=== PATIENT | male | born 1965 | race Caucasian/White ===

== ENCOUNTER 2016-06-24 09:40 | Emergency (ER) | payer SELFPAY ==
[2016-06-24 10:28] VITALS: BP 153/94; PULSE 129; RESP 20; TEMP 98.1
[2016-06-24] MEDS ORDERED: LORazepam 2 MG/ML SYRINGE IM STA (11:20)
--- NOTE | 2016-06-24 11:25 | ED ---
General Adult HPI - General Chief complaint: Alcohol Stated complaint: ALCOHOL AND DRUG WITHDRAWALS Time Seen by Provider: 06/24/16 11:16 Source: patient, RN notes reviewed Mode of arrival: ambulatory Limitations: no limitations - History of Present Illness Initial comments: Patient is a pleasant 50-year-old male presenting to the emergency department concerning alcohol and drug withdrawal. Patient was drinking alcohol heavily as well as taking [place] was. Patient last used 4 days ago. Patient feels cold in his chest. Patient feels shaky. Patient did not sleep at all last night. Patient does complain of moderate right-sided headache. No confusion. No weakness. Patient states nausea has mostly past and is very mild at this time. - Related Data Previous Rx's Medication Instructions Recorded LORazepam [Ativan] 1 mg PO TID PRN #8 tab 06/24/16 Allergies Allergy/AdvReac Type Severity Reaction Status Date / Time No Known Allergies Allergy Verified 06/24/16 10:28 Review of Systems ROS Statement: Those systems with pertinent positive or pertinent negative responses have been documented in the HPI. ROS Other: All systems not noted in ROS Statement are negative. Constitutional: Denies: fever Eyes: Denies: eye pain ENT: Denies: ear pain Respiratory: Denies: cough, dyspnea Cardiovascular: Denies: chest pain Endocrine: Reports: fatigue Gastrointestinal: Reports: nausea. Denies: abdominal pain Genitourinary: Denies: dysuria Musculoskeletal: Denies: back pain Skin: Denies: rash Neurological: Reports: headache. Denies: weakness, numbness, paresthesias, confusion Psychiatric: Reports: anxiety Past Medical History Past Medical History: No Reported History Additional Past Medical History / Comment(s): back pain History of Any Multi-Drug Resistant Organisms: None Reported Past Surgical History: No Surgical Hx Reported Additional Past Surgical History / Comment(s): METAL PLATE IN RIGHT EYE SOCKET Past Psychological History: No Psychological Hx Reported Smoking Status: Current every day smoker Past Alcohol Use History: Occasional Past Drug Use History: None Reported General Exam Limitations: no limitations General appearance: alert, in no apparent distress, other (Patient does have mild resting tremor) Head exam: Present: atraumatic Eye exam: Present: normal appearance, PERRL, EOMI ENT exam: Present: normal oropharynx Neck exam: Present: normal inspection Respiratory exam: Present: normal lung sounds bilaterally Cardiovascular Exam: Present: tachycardia GI/Abdominal exam: Present: soft. Absent: tenderness Extremities exam: Present: normal inspection Neurological exam: Present: alert, oriented X3, CN II-XII intact. Absent: motor sensory deficit Expanded Speech: Present: fluid speech Cranial nerves: EOM's Intact: Normal Motor strength exam: RUE: 5, LUE: 5, RLE: 5, LLE: 5 Eye Response: (4) open spontaneously Motor Response: (6) obeys commands Verbal Response: (5) oriented Psychiatric exam: Present: normal affect, normal mood Skin exam: Absent: rash Course Vital Signs 06/24/16 10:25 Temperature 98.1 F Pulse Rate 129 H Respiratory 20 Rate Blood Pressure 153/94 O2 Sat by Pulse 98 Oximetry - Reevaluation(s) Reevaluation #1: 06/24/16 11:22 Patient offered computed tomography scan of the brain however refuses. Disposition Clinical Impression: Alcohol withdrawal Disposition: HOME SELF-CARE Condition: Stable Instructions: Acute Headache (ED), Alcohol Withdrawal (ED), Polysubstance Abuse (ED) Additional Instructions: Continue to not use alcohol or pain pills. Consider follow-up with AA or [place] or other, list was provided. Return for weakness, fever, increased headache, seizure, worsening symptoms or other concerns. Prescriptions: LORazepam [Ativan] 1 mg PO TID PRN #8 tab PRN Reason: Anxiety Referrals: Oanh Koo DO [Primary Care Provider] - 1-2 days
== END 2016-06-24 11:46 | disposition home or self-care (01) ==
LOC: EC 09:40
DX: F10.239 Alcohol dependence with withdrawal, unspecified (principal); R51 Headache; F17.200 Nicotine dependence, unspecified, uncomplicated; Z79.891 Long term (current) use of opiate analgesic
CPT/HCPCS: 96372; 99284; J2060

== ENCOUNTER → 2017-05-17 | Outpatient (CLI) | payer BC ==
--- NOTE | 2017-05-17 12:41 | XR ---
EXAMINATION TYPE: XR chest 2V DATE OF EXAM: 05/17/2017 COMPARISON: NONE HISTORY: History of COPD with back pain. TECHNIQUE: Frontal and lateral views of the chest are obtained. FINDINGS: There is no focal air space opacity, pleural effusion, or pneumothorax seen. The cardiac silhouette size is within normal limits. The osseous structures are intact. IMPRESSION: No acute cardiopulmonary process.
--- NOTE | 2017-05-17 13:03 | CT ---
EXAMINATION TYPE: CT lumbar spine wo con DATE OF EXAM: 05/17/2017 COMPARISON: NONE HISTORY: Patient complains of low back pain. CT DLP: 373.3 mGycm CONTRAST: None TECHNIQUE: CT of the lumbar spine is performed on a spiral scan at 3 mm thick sections. Reconstructed images are performed in the coronal and sagittal planes. FINDINGS: T11-T12: No focal disc herniation or significant disc bulge is evident. No spinal canal stenosis or neural foraminal stenosis is present. T12-L1: No focal disc herniation or significant disc bulge is evident. No spinal canal stenosis or neural foraminal stenosis is present. L1-L2: No focal disc herniation or significant disc bulge is evident. No spinal canal stenosis or n eural foraminal stenosis is present L2-L3: No focal disc herniation or significant disc bulge is evident. No spinal canal stenosis or n eural foraminal stenosis is present L3-L4: No focal disc herniation or significant disc bulge is evident. No spinal canal stenosis or n eural foraminal stenosis is present L4-L5: Broad-based disc bulge is present. This may be slightly more focal centrally. This has moderat e anterior thecal sac compression. Ligamentum flavum laxity is present. These are contributing to spi nal canal stenosis through this level. Moderate left and mild to moderate right foraminal narrowing i s present due to the disc bulge. Facet degenerative changes present. L5-S1: There is narrowing of the disc height. Some minimal residual disc bulge on the right may has s ome posterior S1 nerve root displacement. Minimal left foraminal narrowing is present. There is mild right foraminal narrowing due to endplate spurring. Vertebral alignment appears normal. IMPRESSION: 1. Broad-based disc bulge with more central focal bulge L4-5 in conjunction with ligamentum flavum la xity is contributing to spinal canal stenosis at the L4-5 level. 2. Mild endplate changes L5-S1 with disc bulging has mild right posterior S1 nerve root displacement and foraminal narrowing discussed above.
== END | disposition home or self-care (01) ==
LOC: RADXRMAIN 11:39
PROVIDERS: ATTEND Family Medicine
DX: M48.061 Spinal stenosis, lumbar region without neurogenic claudication (principal); M99.73 Connective tissue and disc stenosis of intervertebral foramina of lumbar region; M51.27 Other intervertebral disc displacement, lumbosacral region; J44.9 Chronic obstructive pulmonary disease, unspecified
CPT/HCPCS: 71020; 72131

== ENCOUNTER 2021-12-13 08:52 | Emergency (ER) | payer BC, OTHER ==
[2021-12-13 08:59] VITALS: BP 152/95; PULSE 90; RESP 18; TEMP 97.7
--- NOTE | 2021-12-13 09:21 | XR ---
EXAMINATION TYPE: XR chest 2V DATE OF EXAM: 12/13/2021 COMPARISON: 05/17/2017 HISTORY: Shortness of breath TECHNIQUE: Frontal and lateral views of the chest are obtained. FINDINGS: Scattered senescent parenchymal changes noted. Hyperinflation compatible with COPD. No evidence for infiltrate. No evidence for atelectasis. Heart size is stable. Mediastinal structures are stable and grossly unremarkable. No evidence for hilar prominence. Degenerative changes dorsal spine. IMPRESSION: 1. No evidence for acute pulmonary disease.
== END 2021-12-13 09:22 | disposition left against medical advice (07) ==
LOC: EC 08:52
DX: Z53.21 Procedure and treatment not carried out due to patient leaving prior to being seen by health care provider (principal)
CPT/HCPCS: 71046; 87635; 93005; 99499

== ENCOUNTER 2022-08-26 15:30 | Emergency (ER) | payer MEDICARE ==
[2022-08-26 15:35] VITALS: PULSE 80; TEMP 98.2
--- NOTE | 2022-08-26 15:54 | ED ---
General Adult HPI - General Chief complaint: ENT Stated complaint: Sinus infection Time Seen by Provider: 08/26/22 15:52 Source: patient Mode of arrival: ambulatory Limitations: no limitations - History of Present Illness Initial comments: Patient presents to the ED complaining of having pressure along his right maxillary sinus, right nasal congestion and foul-tasting postnasal drip for the past 3 weeks or so. Patient states that he has noticed greenish colored mucus when blowing his nose. Patient is concerned that he has a sinus infection. Patient denies fever or chills, otalgia, neck pain or stiffness, sore throat, cough, dyspnea, chest pain, dizziness, abdominal pain, nausea/vomiting/diarrhea, dysuria or urinary symptoms, or any other symptoms or complaints. - Related Data Previous Rx's Medication Instructions Recorded LORazepam [Ativan] 1 mg PO TID PRN #8 tab 06/24/16 Doxycycline Hyclate 100 mg PO BID 7 Days #14 tab 08/26/22 Pseudoephedrine 12Hr [Sudafed 12 120 mg PO Q12HR PRN #10 tab 08/26/22 Hour] Allergies Allergy/AdvReac Type Severity Reaction Status Date / Time No Known Allergies Allergy Verified 08/26/22 15:35 Review of Systems ROS Statement: Those systems with pertinent positive or pertinent negative responses have been documented in the HPI. ROS Other: All systems not noted in ROS Statement are negative. Past Medical History Past Medical History: COPD Additional Past Medical History / Comment(s): back pain History of Any Multi-Drug Resistant Organisms: None Reported Past Surgical History: No Surgical Hx Reported Additional Past Surgical History / Comment(s): METAL PLATE IN RIGHT EYE SOCKET Past Psychological History: No Psychological Hx Reported Smoking Status: Current every day smoker Past Alcohol Use History: Heavy Past Drug Use History: Prescription Drug Abuse General Exam Limitations: no limitations General appearance: alert, in no apparent distress Head exam: Present: atraumatic, normocephalic Eye exam: Present: normal appearance, PERRL, EOMI ENT exam: Present: normal oropharynx, mucous membranes moist, TM's normal bilaterally, other (Mild tenderness is noted over right maxillary sinus region) Neck exam: Absent: tenderness, meningismus Respiratory exam: Present: normal lung sounds bilaterally. Absent: respiratory distress, wheezes, rales, rhonchi, stridor Cardiovascular Exam: Present: regular rate, normal rhythm, normal heart sounds, other (Normal radial pulses bilaterally) GI/Abdominal exam: Present: soft. Absent: distended, tenderness, guarding Extremities exam: Absent: pedal edema Neurological exam: Present: alert, oriented X3, CN II-XII intact. Absent: motor sensory deficit Psychiatric exam: Present: normal affect, normal mood Skin exam: Present: warm, dry, intact, normal color Course Vital Signs 08/26/22 15:32 Temperature 98.2 F Pulse Rate 80 Respiratory 24 Rate Blood Pressure 140/92 O2 Sat by Pulse 99 Oximetry Medical Decision Making - Medical Decision Making Was pt. sent in by a medical professional or institution (, [facility], [facility], urgent care, hospital, or jail...) When possible be specific @ -No Did you speak to anyone other than the patient for history (EMS, parent, family, police, friend...)? What history was obtained from this source @ -No Did you review nursing and triage notes (agree or disagree)? Why? @ -I reviewed and agree with nursing and triage notes Were old charts reviewed (outside hosp., previous admission, EMS record, old EKG, old radiological studies, urgent care reports/EKG's, jail records)? Report findings @ -No old charts were reviewed Differential Diagnosis (chest pain, altered mental status, abdominal pain women, abdominal pain men, vaginal bleeding, weakness, fever, dyspnea, syncope, head ache, dizziness, GI bleed, back pain, seizure, CVA, palpatations, mental health, musculoskeletal)? @ -Upper respiratory infection, viral illness, sinusitis EKG interpreted by me (3pts min.). @ -None done X-rays interpreted by me (1pt min.). @ -None done CT interpreted by me (1pt min.). @ -None done U/S interpreted by me (1pt. min.). @ -None done What testing was considered but not performed or refused? (CT, X-rays, U/S, labs)? Why? @ -None What meds were considered but not given or refused? Why? @ -None Did you discuss the management of the patient with other professionals (professionals i.e. [facility] Bermudez, [facility], lab, RT, psych nurse, social services director, varnish finisher, teacher, chief green officer, telehealth case manager)? Give summary @ -No Was smoking cessation discussed for >3mins.? @ -No Was critical care preformed (if so, how long)? @ -No Were there social determinants of health that impacted care today? How? (Homelessness, low income, unemployed, alcoholism, drug addiction, transportation, low edu. Level, literacy, decrease access to med. care, senior care, rehab)? @ -No Was there de-escalation of care discussed even if they declined (Discuss DNR or withdrawal of care, Hospice)? DNR status @ -No What co-morbidities impacted this encounter? (DM, HTN, Smoking, COPD, CAD, Cancer, CVA, ARF, Chemo, Hep., AIDS, mental health diagnosis, sleep apnea, morbid obesity)? @ -None Was patient admitted / discharged? Hospital course, mention meds given and route, prescriptions, significant lab abnormalities, going to OR and other p ertinent info. @ -Patient was counseled about sinus infection/sinusitis, and he was clearly explained return and follow-up instructions. Patient was instructed to follow up closely with his primary care provider. Will discharge patient home at this time with prescriptions for a decongestant, as well as a course of antibiotics. Patient feels comfortable with this plan. Undiagnosed new problem with uncertain prognosis? @ -No Drug Therapy requiring intensive monitoring for toxicity (Heparin, Nitro, Insulin, Cardizem)? @ -No Were any procedures done? @ -No Diagnosis/symptom? @ -Acute sinusitis Acute, or Chronic, or Acute on Chronic? @ -Acute Uncomplicated (without systemic symptoms) or Complicated (systemic symptoms)? @ -Uncomplicated Side effects of treatment? @ -No Exacerbation, Progression, or Severe Exacerbation? @ -No Poses a threat to life or bodily function? How? (Chest pain, [place], [place], pneumonia, PE, COPD, DKA, ARF, appy, cholecystitis, CVA, Diverticulitis, Homicidal, Suicidal, threat to staff... and all critical care pts) @ -No Disposition Clinical Impression: Acute sinusitis Disposition: HOME SELF-CARE Condition: Stable Instructions (If sedation given, give patient instructions): Sinusitis (ED) Additional Instructions: Return to the ER immediately should you develop new or worsening pain, a high fever, feeling dizzy or faint, shortness of breath, chest pain, or new or worsening symptoms. Follow up closely with your primary care provider. Prescriptions: Doxycycline Hyclate 100 mg PO BID 7 Days #14 tab Pseudoephedrine 12Hr [Sudafed 12 Hour] 120 mg PO Q12HR PRN #10 tab PRN Reason: Congestion Is patient prescribed a controlled substance at d/c from ED?: No Referrals: None,Stated [Primary Care Provider] - 1-2 days Edward Bowden DO [STAFF PHYSICIAN] - 1-2 days Time of Disposition: 16:17
[2022-08-26 16:24] VITALS: BP 132/78; RESP 18
== END 2022-08-26 16:24 | disposition home or self-care (01) ==
LOC: EC 15:30
DX: J01.90 Acute sinusitis, unspecified (principal); J44.9 Chronic obstructive pulmonary disease, unspecified; F17.200 Nicotine dependence, unspecified, uncomplicated
CPT/HCPCS: 99283

== ENCOUNTER 2022-11-06 21:45 | Emergency (ER) | payer MEDICARE ==
[2022-11-06 21:52] VITALS: TEMP 97.9
[2022-11-06 22:33] LABS: INR 0.9 (<1.2); Partial Thromboplastin Time 24.6 sec (22.0-30.0); Prothrombin Time 9.5 sec (9.0-12.0)
--- NOTE | 2022-11-06 22:38 | XR ---
EXAMINATION TYPE: XR chest 2V DATE OF EXAM: 11/06/2022 10:13 PM COMPARISON: Chest radiographs from 12/13/2021 TECHNIQUE: XR chest 2V Frontal and lateral views of the chest. CLINICAL INDICATION:Male, 57 years old with history of Chest Pain; FINDINGS: Lungs/Pleura: There is flattening of the diaphragm with increased lucency of the lungs. No evidence o f pneumothorax, pleural effusion or focal consolidation. Pulmonary vascularity: Unremarkable. Heart/mediastinum: Cardiomediastinal silhouette is unremarkable. Musculoskeletal: No acute osseous pathology. Right distal clavicle fracture versus os acromiale. IMPRESSION: 1. No acute cardiopulmonary disease process. 2. COPD changes. 3. Right distal clavicle fracture versus os acromiale. Correlate with point tenderness. New from prio r radiograph 12/13/2021.
[2022-11-06 22:50] LABS: ALT 52 U/L (4-49); AST 61 U/L (17-59); African American GFR (CKD) >90 (>60 ml/min/1.73 sqM); Albumin 4.2 g/dL (3.5-5.0); Alkaline Phosphatase 92 U/L (38-126); Anion Gap 13 mmol/L; Blood Urea Nitrogen 8 mg/dL (9-20); Calcium 9.1 mg/dL (8.4-10.2); Carbon Dioxide 23 mmol/L (22-30); Chloride 102 mmol/L (98-107); Glucose 100 mg/dL (74-99); Magnesium 2.1 mg/dL (1.6-2.3); Non-African American GFR(CKD) >90 (>60 ml/min/1.73 sqM); Potassium 3.9 mmol/L (3.5-5.1); Sodium 138 mmol/L (137-145); Total Bilirubin 0.3 mg/dL (0.2-1.3)
[2022-11-06] MEDS ORDERED: KETOROLAC 15 MG/ML 1 ML VIAL IVP STA (23:01)
[2022-11-06] MEDS ORDERED: LIDOCAINE 5% PATCH TOPICAL STA (23:01)
[2022-11-06] MEDS ORDERED: IPRATROPIUM-ALBUTEROL 3 ML NEB INHALATION STA (23:02)
[2022-11-06] MEDS ORDERED: methylPREDNISolone SOD SUCCI 125 MG/2 ML VIAL IV STA (23:02)
[2022-11-06 23:04] LABS: Basophils % (A) 0 %; Eosinophils # (A) 0.3 k/uL (0-0.7); Eosinophils % (A) 3 %; HCT 39.3 % (39.0-53.0); HGB 12.9 gm/dL (13.0-17.5); Lymphocytes % (A) 21 %; MCH 34.5 pg (25.0-35.0); MCHC 32.9 g/dL (31.0-37.0); MCV 104.8 fL (80.0-100.0); Macrocytosis Slight; Mean Platelet Volume 7.3; Monocytes # (A) 0.7 k/uL (0-1.0); Monocytes % (A) 8 %; Neutrophils # (A) 6.3 k/uL (1.3-7.7); Neutrophils % (A) 65 %; Platelet Count 220 k/uL (150-450); RBC 3.75 m/uL (4.30-5.90); RDW 13.3 % (11.5-15.5); WBC 9.7 k/uL (3.8-10.6)
[2022-11-06] MEDS ORDERED: AZITHROMYCIN 500 MG TAB PO STA (23:16)
--- NOTE | 2022-11-06 23:16 | ED ---
General Adult HPI - General Chief complaint: Chest Pain Stated complaint: CHEST PAIN Time Seen by Provider: 11/06/22 22:50 Source: patient, RN notes reviewed, old records reviewed Mode of arrival: ambulatory Limitations: no limitations - History of Present Illness Initial comments: Patient is a 57-year-old male who presents emergency Department complaining of chest pain. Patient's chest pain is more of left-sided rib pain located in the posterior axillary line. He has been having increased coughing, green mucous production over the last few days. No septal chest pain started with coughing episodes. Denies any anterior wall chest pain. No heart history. Does have a history of COPD and still smokes. Denies abdominal pain, nausea, vomiting. Denies congestion. Presents for further evaluation at this time. No known sick contacts. - Related Data Previous Rx's Medication Instructions Recorded LORazepam [Ativan] 1 mg PO TID PRN #8 tab 06/24/16 Doxycycline Hyclate 100 mg PO BID 7 Days #14 tab 08/26/22 Pseudoephedrine 12Hr [Sudafed 12 120 mg PO Q12HR PRN #10 tab 08/26/22 Hour] Albuterol Inhaler [Ventolin Hfa 1 puff INHALATION QID #8 gm 11/06/22 Inhaler] Azithromycin [Zithromax] 250 mg PO DAILY 4 Days #4 tab 11/06/22 Lidocaine 5% Patch [Lidoderm 5% 14 patch TOPICAL DAILY PRN #14 11/06/22 Patch] patch predniSONE [Deltasone] 40 mg PO DAILY 5 Days #10 tab 11/06/22 Allergies Allergy/AdvReac Type Severity Reaction Status Date / Time No Known Allergies Allergy Verified 08/26/22 15:35 Review of Systems ROS Statement: Those systems with pertinent positive or pertinent negative responses have been documented in the HPI. Review of Systems: CONST: Denies fever EYES: Denies blurry vision ENT: Denies nasal congestion C/V: Denies Chest pain RESP: Endorses cough GI: Denies abdominal pain : Denies dysuria SKIN: Denies rash. MSK: Denies joint pain. NEURO: Denies headache ROS Other: All systems not noted in ROS Statement are negative. Past Medical History Past Medical History: COPD Additional Past Medical History / Comment(s): back pain History of Any Multi-Drug Resistant Organisms: None Reported Past Surgical History: No Surgical Hx Reported Additional Past Surgical History / Comment(s): METAL PLATE IN RIGHT EYE SOCKET Past Psychological History: No Psychological Hx Reported Smoking Status: Current every day smoker Past Alcohol Use History: Heavy Past Drug Use History: Prescription Drug Abuse General Exam - General Exam Comments Initial Comments: General: Appears in no acute distress. HEAD: Normal with no signs of head trauma. EYES: PERRLA, EOMI, conjunctiva normal, no discharge. ENT: Hearing grossly intact, normal oropharynx. RESPIRATORY: Bilateral end expiratory wheezing. No rhonchi. No hypoxia. Acti ve coughing. C/V: Regular rate and rhythm. S1 and S2 auscultated, no edema, peripheral pulses 2+ and intact throughout ABD: Abd is soft, nontender, nondistended EXT: Patient does have posterior axillary line on the left point tenderness over the inferior ribs spaces. Likely muscle strain from coughing. No obvious deformity palpated. SKIN: No rashes or lesions observed on exposed skin. NEURO: Alert and oriented 4. 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 sent in by a medical professional or institution (Dr. PA, EMBEDDED LINUX ENGINEER, urgent care, hospital, or fpc...) When possible be specific @ -No Did you speak to anyone other than the patient for history (EMS, parent, family, police, friend...)? What history was obtained from this source @ -No Did you review nursing and triage notes (agree or disagree)? Why? @ -I reviewed and agree with nursing and triage notes Were old charts reviewed (outside hosp., previous admission, EMS record, old EKG, old radiological studies, urgent care reports/EKG's, fpc records)? Report findings @ -No old charts were reviewed Differential Diagnosis (chest pain, altered mental status, abdominal pain women, abdominal pain men, vaginal bleeding, weakness, fever, dyspnea, syncope, headache, dizziness, GI bleed, back pain, seizure, CVA, palpatations, mental health, musculoskeletal)? @ -Differential Dyspnea: Coronary syndrome, arrhythmia, tamponade, asthma, COPD, pulmonary embolism, pneumonia, pneumothorax, pulmonary effusion, anaphylaxis, diabetic ketoacidosis, flailed chest, pulmonary contusion, diaphragmatic rupture, anemia, neuromuscular, this is not meant to be an all-inclusive list. EKG interpreted by me (3pts min.). @ -As above X-rays interpreted by me (1pt min.). @ -Chest x-ray reveals no obvious acute cardiopulmonary process. COPD is present. Radiology does notice right distal clavicle fracture versus abnormality and recommended palpation, which was done the patient has no point tenderness. Has chronic right shoulder issues. CT interpreted by me (1pt min.). @ -None done U/S interpreted by me (1pt. min.). @ -None done What testing was considered but not performed or refused? (CT, X-rays, U/S, labs)? Why? @ -None What meds were considered but not given or refused? Why? @ -None Did you discuss the management of the patient with other professionals (professionals i.e. , PA, EMBEDDED LINUX ENGINEER, lab, RT, psych nurse, social media specialist, education and outreach coordinator, teacher, radiological defense officer, case monitor)? Give summary @ -No Was smoking cessation discussed for >3mins.? @ -Yes Was critical care preformed (if so, how long)? @ -No Were there social determinants of health that impacted care today? How? (Homelessness, low income, unemployed, alcoholism, drug addiction, transportation, low edu. Level, literacy, decrease access to med. care, snf, rehab)? @ -No Was there de-escalation of care discussed even if they declined (Discuss DNR or withdrawal of care, Hospice)? DNR status @ -No What co-morbidities impacted this encounter? (DM, HTN, Smoking, COPD, CAD, Cancer, CVA, ARF, Chemo, Hep., AIDS, mental health diagnosis, sleep apnea, morbid obesity)? @ -COPD Was patient admitted / discharged? Hospital course, mention meds given and route, prescriptions, significant lab abnormalities, going to OR and other pertinent info. @ -Based on the patient's presentation and physical exam, I do believe he has a chest wall strain secondary to coughing from an acute COPD exacerbation and bronchitis. Patient's workup was started in triage. Vital signs are within acceptable limits. Initial tachycardia has resolved. Patient was sent directly treated with IV steroids, breathing treatment, lidocaine patch, IV Toradol. He was in agreement with this plan. EKG shows no signs of acute ischemia. Chest x-ray shows no acute infectious process. There is an abnormality seen of the right clavicle which is likely chronic as the patient is no point tenderness in his chronic right shoulder issues. I did discuss the findings with him and he expressed understanding. Patient's labs are remarkable for an undetectable troponin. Remainder of labs are within acceptable limits. On reevaluation, I did discuss the findings with the patient. He'll be discharged home at this time with antibiotics, steroids, inhaler. Strict return precautions discussed. He will also be given a prescription for lidocaine patches. I will provide the patient with a prescription for prednisone, albuterol inhaler, azithromycin, lidocaine patch. I instructed the patient to follow up with their PCP in the next 1-3 days. I explained that the patient should return to the emergency department if they experience any worsening symptoms. Strict return precautions were discussed with the patient. The patient expressed understanding of these instructions. I answered all questions that the patient had. The patient was discharged home in good condition with their prescriptions and follow up information. Undiagnosed new problem with uncertain prognosis? @ -No Drug Therapy requiring intensive monitoring for toxicity (Heparin, Nitro, Insulin, Cardizem)? @ -No Were any procedures done? @ -No Diagnosis/symptom? @ -COPD, bronchitis Acute, or Chronic, or Acute on Chronic? @ -Acute on chronic Uncomplicated (without systemic symptoms) or Complicated (systemic symptoms)? @ -Complicated Side effects of treatment? @ -No Exacerbation, Progression, or Severe Exacerbation? @ -Exacerbation Poses a threat to life or bodily function? How? (Chest pain, [place], AR, pneumonia, PE, COPD, DKA, ARF, appy, cholecystitis, CVA, Diverticulitis, Homicidal, Suicidal, threat to staff... and all critical care pts) @ -No Diagnosis/symptom? @ -Chest wall strain Acute, or Chronic, or Acute on Chronic? @ -Acute Uncomplicated (without systemic symptoms) or Complicated (systemic symptoms)? @ -Uncomplicated Side effects of treatment? @ -none Exacerbation, Progression, or Severe Exacerbation] @ -no Poses a threat to life or bodily function? @ -no - Lab Data Result diagrams: 11/06/22 21:54 11/06/22 21:54 Lab Results 11/06/22 11/06/22 11/06/22 Range/Units 21:54 21:54 21:54 WBC 9.7 (3.8-10.6) k/uL RBC 3.75 L (4.30-5.90) m/uL Hgb 12.9 L (13.0-17.5) gm/dL Hct 39.3 (39.0-53.0) % MCV 104.8 H (80.0-100.0) fL MCH 34.5 (25.0-35.0) pg MCHC 32.9 (31.0-37.0) g/dL RDW 13.3 (11.5-15.5) % Plt Count 220 (150-450) k/uL MPV 7.3 Neutrophils % 65 % Lymphocytes % 21 % Monocytes % 8 % Eosinophils % 3 % Basophils % 0 % Neutrophils # 6.3 (1.3-7.7) k/uL Lymphocytes # 2.0 (1.0-4.8) k/uL Monocytes # 0.7 (0-1.0) k/uL Eosinophils # 0.3 (0-0.7) k/uL Basophils # 0.0 (0-0.2) k/uL Macrocytosis Slight PT 9.5 (9.0-12.0) sec INR 0.9 (<1.2) APTT 24.6 (22.0-30.0) sec Sodium 138 (137-145) mmol/L Potassium 3.9 (3.5-5.1) mmol/L Chloride 102 (98-107) mmol/L Carbon Dioxide 23 (22-30) mmol/L Anion Gap 13 mmol/L BUN 8 L (9-20) mg/dL Creatinine 0.57 L (0.66-1.25) mg/dL Est GFR (CKD-EPI)AfAm >90 (>60 ml/min/1.73 sqM) Est GFR (CKD-EPI)NonAf >90 (>60 ml/min/1.73 sqM) Glucose 100 H (74-99) mg/dL Calcium 9.1 (8.4-10.2) mg/dL Magnesium 2.1 (1.6-2.3) mg/dL Total Bilirubin 0.3 (0.2-1.3) mg/dL AST 61 H (17-59) U/L ALT 52 H (4-49) U/L Alkaline Phosphatase 92 (38-126) U/L Troponin I (0.000-0.034) ng/mL Total Protein 7.0 (6.3-8.2) g/dL Albumin 4.2 (3.5-5.0) g/dL 11/06/22 Range/Units 21:54 WBC (3.8-10.6) k/uL RBC (4.30-5.90) m/uL Hgb (13.0-17.5) gm/dL Hct (39.0-53.0) % MCV (80.0-100.0) fL MCH (25.0-35.0) pg MCHC (31.0-37.0) g/dL RDW (11.5-15.5) % Plt Count (150-450) k/uL MPV Neutrophils % % Lymphocytes % % Monocytes % % Eosinophils % % Basophils % % Neutrophils # (1.3-7.7) k/uL Lymphocytes # (1.0-4.8) k/uL Monocytes # (0-1.0) k/uL Eosinophils # (0-0.7) k/uL Basophils # (0-0.2) k/uL Macrocytosis PT (9.0-12.0) sec INR (<1.2) APTT (22.0-30.0) sec Sodium (137-145) mmol/L Potassium (3.5-5.1) mmol/L Chloride (98-107) mmol/L Carbon Dioxide (22-30) mmol/L Anion Gap mmol/L BUN (9-20) mg/dL Creatinine (0.66-1.25) mg/dL Est GFR (CKD-EPI)AfAm (>60 ml/min/1.73 sqM) Est GFR (CKD-EPI)NonAf (>60 ml/min/1.73 sqM) Glucose (74-99) mg/dL Calcium (8.4-10.2) mg/dL Magnesium (1.6-2.3) mg/dL Total Bilirubin (0.2-1.3) mg/dL AST (17-59) U/L ALT (4-49) U/L Alkaline Phosphatase (38-126) U/L Troponin I <0.012 (0.000-0.034) ng/mL Total Protein (6.3-8.2) g/dL Albumin (3.5-5.0) g/dL - EKG Data -: EKG Interpreted by Me EKG Comments: 12-lead Electrocardiogram Interpretation Note EKG was reviewed and interpreted by myself. 12-lead ECG performed at 2154 is interpreted by me as revealing normal sinus rhythm at a rate of 93 beats per minute. Left axis deviation. MD interval is 161 ms, QRS duration is 100 ms, QTc is 384 ms.. There were no ST or T wave abnormalities to suggest myocardial ischemia or injury. R wave progression across the precordium was satisfactory. By my interpretation this EKG is non-diagnostic for acute ischemia. Disposition Clinical Impression: COPD exacerbation, Bronchitis, Muscle strain Disposition: HOME SELF-CARE Condition: Good Instructions (If sedation given, give patient instructions): How to Use an Incentive Spirometer (ED), Acute Bronchitis (ED), COPD (Chronic Obstructive Pulmonary Disease) (ED) Prescriptions: predniSONE [Deltasone] 40 mg PO DAILY 5 Days #10 tab Lidocaine 5% Patch [Lidoderm 5% Patch] 14 patch TOPICAL DAILY PRN #14 patch PRN Reason: Pain Albuterol Inhaler [Ventolin Hfa Inhaler] 1 puff INHALATION QID #8 gm Azithromycin [Zithromax] 250 mg PO DAILY 4 Days #4 tab Is patient prescribed a controlled substance at d/c from ED?: No Referrals: None,Stated [Primary Care Provider] - 1-2 days Sofiya Christine MD [STAFF PHYSICIAN] - 1-2 days Time of Disposition: 23:15
[2022-11-07 00:08] VITALS: BP 122/71; PULSE 92; RESP 20
== END 2022-11-07 00:07 | disposition home or self-care (01) ==
LOC: EC 21:45
DX: S29.011A Strain of muscle and tendon of front wall of thorax, initial encounter (principal); J44.1 Chronic obstructive pulmonary disease with (acute) exacerbation; J20.9 Acute bronchitis, unspecified; F17.200 Nicotine dependence, unspecified, uncomplicated
CPT/HCPCS: 36415; 94640; 93005; 80053; 83735; 84484; 85025; 85610; 85730; 71046; 99285; 96374; 96375; J2930; J1885

== ENCOUNTER 2023-04-11 21:58 | Emergency (ER) | payer MEDICARE ==
--- NOTE | 2023-04-11 22:16 | ED ---
General Adult HPI - General Stated complaint: Difficulty Breathing, Dehydration Time Seen by Provider: 04/11/23 22:14 Source: patient, RN notes reviewed - History of Present Illness Initial comments: 57 year old male presents to the emergency department for chief complaint of difficulty catching his breath. This started this afternoon. He admits to history of COPD. He does report increase in alcohol consumption for the past 2 weeks. He states that he has been drinking 4 beers at 8% alcohol daily. Last drink was around 2pm today. - Related Data Previous Rx's Medication Instructions Recorded LORazepam [Ativan] 1 mg PO TID PRN #8 tab 06/24/16 Doxycycline Hyclate 100 mg PO BID 7 Days #14 tab 08/26/22 Pseudoephedrine 12Hr [Sudafed 12 120 mg PO Q12HR PRN #10 tab 08/26/22 Hour] Albuterol Inhaler [Ventolin Hfa 1 puff INHALATION QID #8 gm 11/06/22 Inhaler] Azithromycin [Zithromax] 250 mg PO DAILY 4 Days #4 tab 11/06/22 Lidocaine 5% Patch [Lidoderm 5% 14 patch TOPICAL DAILY PRN #14 11/06/22 Patch] patch predniSONE [Deltasone] 40 mg PO DAILY 5 Days #10 tab 11/06/22 Allergies Allergy/AdvReac Type Severity Reaction Status Date / Time No Known Allergies Allergy Verified 08/26/22 15:35 Review of Systems ROS Statement: Those systems with pertinent positive or pertinent negative responses have been documented in the HPI. ROS Other: All systems not noted in ROS Statement are negative. Past Medical History Past Medical History: COPD Additional Past Medical History / Comment(s): back pain History of Any Multi-Drug Resistant Organisms: None Reported Past Surgical History: No Surgical Hx Reported Additional Past Surgical History / Comment(s): METAL PLATE IN RIGHT EYE SOCKET Past Psychological History: No Psychological Hx Reported Smoking Status: Current every day smoker Past Alcohol Use History: Heavy Past Drug Use History: Prescription Drug Abuse General Exam - General Exam Comments Initial Comments: Visual Physical Exam Vital signs reviewed General: Well-appearing, nontoxic, no acute distress. Head: Normocephalic, atraumatic Eyes: PERRLA, EOMI ENT: Airway patent Chest: Nonlabored breathing Skin: No visual rash, normal skin tone Neuro: Alert and oriented 3 Musculoskeletal: No gross abnormalities Course Vital Signs 04/11/23 22:11 Temperature 96.9 F L Pulse Rate 117 H Respiratory 24 Rate Blood Pressure 184/92 O2 Sat by Pulse 96 Oximetry Medical Decision Making - Medical Decision Making I preformed the quick note portion of this chart. Electronically signed by Janell Luther PA-C. Disposition Clinical Impression: Left against medical advice Disposition: LEFT AGAINST MEDICAL ADVICE Is patient prescribed a controlled substance at d/c from ED?: No Referrals: None,Stated [Primary Care Provider] - 1-2 days
[2023-04-11 23:31] VITALS: BP 184/92; PULSE 117; RESP 24; TEMP 96.9
== END 2023-04-12 02:32 | disposition left against medical advice (07) ==
LOC: EC 21:58
DX: R06.02 Shortness of breath (principal); J44.9 Chronic obstructive pulmonary disease, unspecified; F17.200 Nicotine dependence, unspecified, uncomplicated; Z53.29 Procedure and treatment not carried out because of patient's decision for other reasons
CPT/HCPCS: 99284

== ENCOUNTER 2023-04-12 02:13 | Emergency (ER) | payer MEDICARE ==
[2023-04-12 02:27] VITALS: RESP 18; TEMP 98.1
[2023-04-12 02:59] LABS: Basophils % (A) 0 %; Eosinophils # (A) 0.1 k/uL (0-0.7); Eosinophils % (A) 1 %; HCT 39.5 % (39.0-53.0); HGB 13.9 gm/dL (13.0-17.5); Lymphocytes # (A) 1.5 k/uL (1.0-4.8); Lymphocytes % (A) 24 %; MCH 36.3 pg (25.0-35.0); MCHC 35.3 g/dL (31.0-37.0); MCV 102.8 fL (80.0-100.0); Macrocytosis Slight; Mean Platelet Volume 7.7; Monocytes # (A) 0.5 k/uL (0-1.0); Monocytes % (A) 8 %; Neutrophils # (A) 4.1 k/uL (1.3-7.7); Neutrophils % (A) 64 %; Platelet Count 189 k/uL (150-450); RBC 3.84 m/uL (4.30-5.90); RDW 12.3 % (11.5-15.5); WBC 6.4 k/uL (3.8-10.6)
[2023-04-12 03:08] LABS: African American GFR (CKD) >90 (>60 ml/min/1.73 sqM); Anion Gap 11 mmol/L; Blood Urea Nitrogen 8 mg/dL (9-20); Calcium 9.3 mg/dL (8.4-10.2); Carbon Dioxide 25 mmol/L (22-30); Chloride 97 mmol/L (98-107); Glucose 120 mg/dL (74-99); Non-African American GFR(CKD) >90 (>60 ml/min/1.73 sqM); Sodium 133 mmol/L (137-145)
[2023-04-12 03:09] LABS: ALT 115 U/L (4-49); AST 263 U/L (17-59); Albumin 4.4 g/dL (3.5-5.0); Alkaline Phosphatase 114 U/L (38-126); INR 0.9 (<1.2); Prothrombin Time 10.3 sec (10.0-12.5); Total Bilirubin 0.9 mg/dL (0.2-1.3); Total Protein 7.2 g/dL (6.3-8.2)
[2023-04-12 03:10] LABS: Partial Thromboplastin Time 23.5 sec (22.0-30.0)
[2023-04-12] MEDS ORDERED: MORPHINE SULFATE 2 MG/ML SYRINGE IVP STA (04:17)
[2023-04-12] MEDS ORDERED: SODIUM CHLORIDE 0.9% 1,000 ML IV STA ×2 (04:17)
[2023-04-12] MEDS ORDERED: LORazepam 2 MG/ML INJ IV STA (04:17)
[2023-04-12] MEDS ORDERED: SODIUM CHLORIDE 0.9% 500 ML 500 ML IV STA (04:17)
[2023-04-12] MEDS ORDERED: KETOROLAC 15 MG/ML 1 ML VIAL IVP STA (04:17)
--- NOTE | 2023-04-12 04:18 | ED ---
SOB HPI - General Chief Complaint: Shortness of Breath Stated Complaint: Anxiety Time Seen by Provider: 04/12/23 03:11 Source: patient, RN notes reviewed, old records reviewed Mode of arrival: EMS Limitations: no limitations - History of Present Illness Initial Comments: This is a 57-year-old male the ER today. Presents today for evaluation regards to not feeling well weakness lightheadedness dizziness feels that he may pass out. Patient does admit to significant amount recent alcohol intake. Increasing stress in his life. Patient also admits to shortness of breath with known COPD. Otherwise no other complaints. No recent fevers no travel history no sick contacts MD Complaint: shortness of breath, cough, anxiety -: days(s) Severity: moderate Severity scale (1-10): 4 Consistency: constant Improves With: nothing Worsens With: nothing Known History Of: COPD, asthma Context: recent URI, recent illness Associated Symptoms: denies other symptoms Treatments Prior to Arrival: none - Related Data Previous Rx's Medication Instructions Recorded LORazepam [Ativan] 1 mg PO TID PRN #8 tab 06/24/16 Doxycycline Hyclate 100 mg PO BID 7 Days #14 tab 08/26/22 Pseudoephedrine 12Hr [Sudafed 12 120 mg PO Q12HR PRN #10 tab 08/26/22 Hour] Albuterol Inhaler [Ventolin Hfa 1 puff INHALATION QID #8 gm 11/06/22 Inhaler] Azithromycin [Zithromax] 250 mg PO DAILY 4 Days #4 tab 11/06/22 Lidocaine 5% Patch [Lidoderm 5% 14 patch TOPICAL DAILY PRN #14 11/06/22 Patch] patch predniSONE [Deltasone] 40 mg PO DAILY 5 Days #10 tab 11/06/22 Allergies Allergy/AdvReac Type Severity Reaction Status Date / Time No Known Allergies Allergy Verified 08/26/22 15:35 Review of Systems ROS Statement: Those systems with pertinent positive or pertinent negative responses have been documented in the HPI. ROS Other: All systems not noted in ROS Statement are negative. Past Medical History Past Medical History: COPD Additional Past Medical History / Comment(s): back pain History of Any Multi-Drug Resistant Organisms: None Reported Past Surgical History: No Surgical Hx Reported Additional Past Surgical History / Comment(s): METAL PLATE IN RIGHT EYE SOCKET Past Psychological History: No Psychological Hx Reported Smoking Status: Current every day smoker Past Alcohol Use History: Heavy Past Drug Use History: Prescription Drug Abuse General Exam Limitations: no limitations General appearance: alert, in no apparent distress, anxious Head exam: Present: atraumatic, normocephalic, normal inspection Eye exam: Present: normal appearance, PERRL, EOMI. Absent: scleral icterus, conjunctival injection, periorbital swelling ENT exam: Present: normal exam, mucous membranes moist Neck exam: Present: normal inspection. Absent: tenderness, meningismus, lymphadenopathy Respiratory exam: Present: normal lung sounds bilaterally. Absent: respiratory distress, wheezes, rales, rhonchi, stridor Cardiovascular Exam: Present: regular rate, normal rhythm, normal heart sounds. Absent: systolic murmur, diastolic murmur, rubs, gallop, clicks GI/Abdominal exam: Present: soft, normal bowel sounds. Absent: distended, tenderness, guarding, rebound, rigid Extremities exam: Present: normal inspection, full ROM, normal capillary refill. Absent: tenderness, pedal edema, joint swelling, calf tenderness Back exam: Present: normal inspection Neurological exam: Present: alert, oriented X3, CN II-XII intact Psychiatric exam: Present: normal affect, normal mood Skin exam: Present: warm, dry, intact, normal color. Absent: rash Course Vital Signs 04/12/23 04/12/23 02:20 06:08 Temperature 98.1 F Pulse Rate 90 86 Respiratory 18 18 Rate Blood Pressure 160/89 127/79 O2 Sat by Pulse 95 96 Oximetry - Reevaluation(s) Reevaluation #1: 04/12/23 05:11 Medical records reviewed Reevaluation #2: 04/12/23 05:11 Patient symptoms improved Reevaluation #3: 04/12/23 05:11 Patient informed results questions answered Reevaluation #4: 04/12/23 05:11 Was pt. sent in by a medical professional or institution (, PA, RECREATION THERAPY DIRECTOR, urgent care, hospital, or skilled nursing...) When possible be specific @ -no Did you speak to anyone other than the patient for history (EMS, parent, family, police, friend...)? What history was obtained from this source @ -no Did you review nursing and triage notes (agree or disagree)? Why? @ -agree Are old charts reviewed (outside hosp., previous admission, EMS record, old EKG, old radiological studies, urgent care reports/EKG's, skilled nursing records)? Report findings @ -yes Differential Diagnosis (chest pain, altered mental status, abdominal pain women, abdominal pain men, vaginal bleeding, weakness, fever, dyspnea, syncope, headache, dizziness, GI bleed, back pain, seizure, CVA, palpatations, mental health, musculoskeletal)? @ -prior EKG interpreted by me (3pts min.). @ -yes X-rays interpreted by me (1pt min.). @ -yes CT interpreted by me (1pt min.). @ -no U/S interpreted by me (1pt. min.). @ -no What testing was considered but not performed or refused? (CT, X-rays, U/S, labs)? Why? @ -none What meds were considered but not given or refused? Why? @ -none Did you discuss the management of the patient with other professionals (professionals i.e. , PA, RECREATION THERAPY DIRECTOR, lab, RT, psych nurse, director of social services, action finisher, teacher, [place] 9 police officer, case advocate)? Give summary @ -no Was smoking cessation discussed for >3mins.? @ -no Was critical care preformed (if so, how long)? @ -no Were there social determinants of health that impacted care today? How? (Homelessness, low income, unemployed, alcoholism, drug addiction, transportation, low edu. Level, literacy, decrease access to med. care, [facility], rehab)? @ -none Was there de-escalation of care discussed even if they declined (Discuss DNR or withdrawal of care, Hospice)? DNR status @ -no What co-morbidities impacted this encounter? (DM, HTN, Smoking, COPD, CAD, Cancer, CVA, ARF, Chemo, Hep., AIDS, mental health diagnosis, sleep apnea, morbid obesity)? @ -none Was patient admitted / discharged? Hospital course, mention meds given and route, prescriptions, significant lab abnormalities, going to OR and other pertinent info. @ - 57 male for significant dehydration alcohol related dehydration with symptoms improved here in the ER, patient can be discharged home Discharge Undiagnosed new problem with uncertain prognosis? @ -no Drug Therapy requiring intensive monitoring for toxicity (Heparin, Nitro, Insulin, Cardizem)? @ -no Were any procedures done? @ -no Diagnosis/symptom? @ -Dehydration, weakness Acute, or Chronic, or Acute on Chronic? @ -Acute Uncomplicated (without systemic symptoms) or Complicated (systemic symptoms)? @ -Complicated Side effects of treatment? @ -no Exacerbation, Progression, or Severe Exacerbation? @ -exacerbation Poses a threat to life or bodily function? How? (Chest pain, USA, [place], pneumonia, PE, COPD, DKA, ARF, appy, cholecystitis, CVA, Diverticulitis, Homicidal, Suicidal, threat to staff... and all critical care pts) @ -no Reevaluation #5: 04/12/23 05:11 Differential Weakness: Hypoglycemia, shock, sepsis, hyponatremia, anemia, infection, RI, ETOH, adverse medicine reaction, overdose, stroke, this is not meant to be an all-inclusive list. Medical Decision Making - Medical Decision Making 57 male for significant dehydration alcohol related dehydration with symptoms improved here in the ER, patient can be discharged home - Lab Data Result diagrams: 04/12/23 02:25 04/12/23 02:25 Lab Results 04/12/23 04/12/23 04/12/23 Range/Units 02:25 02:25 02:25 WBC 6.4 (3.8-10.6) k/uL RBC 3.84 L (4.30-5.90) m/uL Hgb 13.9 (13.0-17.5) gm/dL Hct 39.5 (39.0-53.0) % MCV 102.8 H (80.0-100.0) fL MCH 36.3 H (25.0-35.0) pg MCHC 35.3 (31.0-37.0) g/dL RDW 12.3 (11.5-15.5) % Plt Count 189 (150-450) k/uL MPV 7.7 Neutrophils % 64 % Lymphocytes % 24 % Monocytes % 8 % Eosinophils % 1 % Basophils % 0 % Neutrophils # 4.1 (1.3-7.7) k/uL Lymphocytes # 1.5 (1.0-4.8) k/uL Monocytes # 0.5 (0-1.0) k/uL Eosinophils # 0.1 (0-0.7) k/uL Basophils # 0.0 (0-0.2) k/uL Macrocytosis Slight PT 10.3 (10.0-12.5) sec INR 0.9 (<1.2) APTT 23.5 (22.0-30.0) sec Sodium 133 L (137-145) mmol/L Potassium 4.0 (3.5-5.1) mmol/L Chloride 97 L (98-107) mmol/L Carbon Dioxide 25 (22-30) mmol/L Anion Gap 11 mmol/L BUN 8 L (9-20) mg/dL Creatinine 0.53 L (0.66-1.25) mg/dL Est GFR (CKD-EPI)AfAm >90 (>60 ml/min/1.73 sqM) Est GFR (CKD-EPI)NonAf >90 (>60 ml/min/1.73 sqM) Glucose 120 H (74-99) mg/dL Calcium 9.3 (8.4-10.2) mg/dL Phosphorus (2.5-4.5) mg/dL Magnesium (1.6-2.3) mg/dL Total Bilirubin 0.9 (0.2-1.3) mg/dL AST 263 H (17-59) U/L ALT 115 H (4-49) U/L Alkaline Phosphatase 114 (38-126) U/L Troponin I (0.000-0.034) ng/mL Total Protein 7.2 (6.3-8.2) g/dL Albumin 4.4 (3.5-5.0) g/dL Lipase (23-300) U/L 04/12/23 04/12/23 Range/Units 02:25 02:25 WBC (3.8-10.6) k/uL RBC (4.30-5.90) m/uL Hgb (13.0-17.5) gm/dL Hct (39.0-53.0) % MCV (80.0-100.0) fL MCH (25.0-35.0) pg MCHC (31.0-37.0) g/dL RDW (11.5-15.5) % Plt Count (150-450) k/uL MPV Neutrophils % % Lymphocytes % % Monocytes % % Eosinophils % % Basophils % % Neutrophils # (1.3-7.7) k/uL Lymphocytes # (1.0-4.8) k/uL Monocytes # (0-1.0) k/uL Eosinophils # (0-0.7) k/uL Basophils # (0-0.2) k/uL Macrocytosis PT (10.0-12.5) sec INR (<1.2) APTT (22.0-30.0) sec Sodium (137-145) mmol/L Potassium (3.5-5.1) mmol/L Chloride (98-107) mmol/L Carbon Dioxide (22-30) mmol/L Anion Gap mmol/L BUN (9-20) mg/dL Creatinine (0.66-1.25) mg/dL Est GFR (CKD-EPI)AfAm (>60 ml/min/1.73 sqM) Est GFR (CKD-EPI)NonAf (>60 ml/min/1.73 sqM) Glucose (74-99) mg/dL Calcium (8.4-10.2) mg/dL Phosphorus 4.4 (2.5-4.5) mg/dL Magnesium 1.8 (1.6-2.3) mg/dL Total Bilirubin (0.2-1.3) mg/dL AST (17-59) U/L ALT (4-49) U/L Alkaline Phosphatase (38-126) U/L Troponin I 0.022 (0.000-0.034) ng/mL Total Protein (6.3-8.2) g/dL Albumin (3.5-5.0) g/dL Lipase 72 (23-300) U/L - EKG Data -: EKG Interpreted by Me (EKG is sinus rate 77 DC 160 QRS 105 QTc 409) Disposition Clinical Impression: Weakness, Dehydration Disposition: HOME SELF-CARE Condition: Good Instructions (If sedation given, give patient instructions): Dehydration (ED) Is patient prescribed a controlled substance at d/c from ED?: No Referrals: None,Stated [Primary Care Provider] - 1-2 days Time of Disposition: 05:15
[2023-04-12 05:15] LABS: Magnesium 1.8 mg/dL (1.6-2.3); Phosphorus 4.4 mg/dL (2.5-4.5)
[2023-04-12 06:13] VITALS: BP 127/79; PULSE 86
--- NOTE | 2023-04-12 07:13 | XR ---
EXAMINATION TYPE: XR chest 2V DATE OF EXAM: 04/12/2023 2:52 AM CLINICAL INDICATION:Male, 57 years old with history of difficulty breathing; [facility] COMPARISON: Chest radiographs from 11/06/2022 TECHNIQUE: XR chest 2V Frontal and lateral views of the chest. FINDINGS: Lungs/Pleura: There is no evidence of pleural effusion, focal consolidation, or pneumothorax. Pulmonary vascularity: Unremarkable. Heart/mediastinum: Cardiomediastinal silhouette is unremarkable. Musculoskeletal: No acute osseous pathology. Other findings: None IMPRESSION: No acute cardiopulmonary disease/process.
== END 2023-04-12 06:08 | disposition home or self-care (01) ==
LOC: EC 02:13
DX: R53.1 Weakness (principal); E86.0 Dehydration; I44.4 Left anterior fascicular block; J44.9 Chronic obstructive pulmonary disease, unspecified; F17.200 Nicotine dependence, unspecified, uncomplicated
CPT/HCPCS: 99285; 36415; 93005; 80053; 83690; 83735; 84100; 84484; 85025; 85610; 85730; 71046; 96374; 96375 ×2; 96361; J2060; J2270; J1885

== ENCOUNTER 2023-06-25 09:37 | Emergency (ER) | payer MEDICARE ==
[2023-06-25 09:46] VITALS: TEMP 98.4
[2023-06-25] MEDS ORDERED: ALBUTEROL NEBULIZED 2.5 MG/3 ML INHALATION STA (09:49)
[2023-06-25] MEDS ORDERED: methylPREDNISolone SOD SUCCI 125 MG/2 ML VIAL IV STA (09:49)
[2023-06-25] MEDS ORDERED: IPRATROPIUM 0.5 MG/2.5 ML NEBU INHALATION STA (09:49)
[2023-06-25 10:08] LABS: HCT 43.2 % (39.0-53.0); MCH 35.5 pg (25.0-35.0); MCHC 34.7 g/dL (31.0-37.0); MCV 102.3 fL (80.0-100.0); Macrocytosis Slight; Mean Platelet Volume 7.4; Platelet Count 251 k/uL (150-450); RBC 4.22 m/uL (4.30-5.90); RDW 12.2 % (11.5-15.5); WBC 4.6 k/uL (3.8-10.6)
[2023-06-25 10:14] LABS: INR 0.9 (<1.2); Partial Thromboplastin Time 23.9 sec (22.0-30.0); Prothrombin Time 10.3 sec (10.0-12.5)
--- NOTE | 2023-06-25 10:14 | XR ---
EXAMINATION TYPE: XR chest 2V DATE OF EXAM: 06/25/2023 COMPARISON: 04/12/2023 HISTORY: 57 year-old male shortness of breath, difficulty breathing TECHNIQUE: PA and lateral views FINDINGS: Heart normal size. Aorta and pulmonary vasculature are within normal limits. Hyperinflation. Old frac ture deformity left posterolateral eighth rib with callus is present on 04/12/2023 as well. No consoli dation or pleural effusion. IMPRESSION: COPD and chronic changes. No acute process seen.
[2023-06-25 10:16] LABS: ALT 49 U/L (4-49); AST 76 U/L (17-59); African American GFR (CKD) >90 (>60 ml/min/1.73 sqM); Albumin 4.5 g/dL (3.5-5.0); Alkaline Phosphatase 82 U/L (38-126); Anion Gap 11 mmol/L; Blood Urea Nitrogen 13 mg/dL (9-20); Calcium 9.4 mg/dL (8.4-10.2); Carbon Dioxide 22 mmol/L (22-30); Chloride 106 mmol/L (98-107); Glucose 122 mg/dL (74-99); Non-African American GFR(CKD) >90 (>60 ml/min/1.73 sqM); Potassium 4.6 mmol/L (3.5-5.1); Sodium 139 mmol/L (137-145); Total Bilirubin 0.4 mg/dL (0.2-1.3); Total Protein 7.5 g/dL (6.3-8.2)
[2023-06-25 10:52] LABS: Eosinophils # (M) 0.23 k/uL (0-0.7); Lymphocytes # (M) 1.29 k/uL (1.0-4.8); Monocytes # (M) 0.23 k/uL (0-1.0); Neutrophils # (M) 2.85 k/uL (1.3-7.7); Neutrophils % (M) 62 %; Nucleated Red Blood Cells 0 /100 WBC (0-0); Total Cells Counted 100
[2023-06-25] MEDS ORDERED: LORazepam 2 MG/ML INJ IV STA (10:59)
--- NOTE | 2023-06-25 12:07 | ED ---
General Adult HPI - General Chief complaint: Shortness of Breath Stated complaint: SOB Time Seen by Provider: 06/25/23 09:50 Source: patient, RN notes reviewed, old records reviewed Mode of arrival: EMS Limitations: no limitations - History of Present Illness Initial comments: This a 57-year-old male who has a past medical history significant for COPD and continues to smoke. Patient states when he woke up he couldn't catch his breath and then he started having some anxiety because he couldn't catch his breath he used a breathing treatment and he states it did not help. Patient denies any chest pain or heaviness on his chest. Patient denies any fever chills but has a slight cough per patient denies abdominal pain palpitations nausea vomiting d iarrhea. Patient denies headache patient denies numbness weakness. - Related Data Previous Rx's Medication Instructions Recorded LORazepam [Ativan] 1 mg PO TID PRN #8 tab 06/24/16 Doxycycline Hyclate 100 mg PO BID 7 Days #14 tab 08/26/22 Pseudoephedrine 12Hr [Sudafed 12 120 mg PO Q12HR PRN #10 tab 08/26/22 Hour] Albuterol Inhaler [Ventolin Hfa 1 puff INHALATION QID #8 gm 11/06/22 Inhaler] Azithromycin [Zithromax] 250 mg PO DAILY 4 Days #4 tab 11/06/22 Lidocaine 5% Patch [Lidoderm 5% 14 patch TOPICAL DAILY PRN #14 11/06/22 Patch] patch predniSONE [Deltasone] 40 mg PO DAILY 5 Days #10 tab 11/06/22 Albuterol Inhaler [Ventolin Hfa 1 - 2 puff INHALATION Q6HR PRN #2 06/25/23 Inhaler] each Azithromycin [Zithromax Tri-Domenic (3 500 mg PO DAILY 3 Days #3 tab 06/25/23 tabs)] predniSONE [Deltasone] 40 mg PO DAILY #8 tab 06/25/23 Allergies Allergy/AdvReac Type Severity Reaction Status Date / Time No Known Allergies Allergy Verified 08/26/22 15:35 Review of Systems ROS Statement: Those systems with pertinent positive or pertinent negative responses have been documented in the HPI. ROS Other: All systems not noted in ROS Statement are negative. Past Medical History Past Medical History: COPD Additional Past Medical History / Comment(s): back pain History of Any Multi-Drug Resistant Organisms: None Reported Past Surgical History: No Surgical Hx Reported Additional Past Surgical History / Comment(s): METAL PLATE IN RIGHT EYE SOCKET Past Psychological History: No Psychological Hx Reported Smoking Status: Current every day smoker Past Alcohol Use History: Heavy Past Drug Use History: Prescription Drug Abuse General Exam - General Exam Comments Initial Comments: GENERAL: Patient is well-developed and well-nourished. Patient is nontoxic and well- hydrated and is in mild distress. ENT: Neck is soft and supple. No significant lymphadenopathy is noted. Oropharynx is clear. Moist mucous membranes. Neck has full range of motion without eliciting any pain. EYES: The sclera were anicteric and conjunctiva were pink and moist. Extraocular movements were intact and pupils were equal round and reactive to light. Eyelids were unremarkable. PULMONARY: Patient has diffuse expiratory wheezing CARDIOVASCULAR: There is a regular rate and rhythm without any murmurs gallops or rubs. ABDOMEN: Soft and nontender with normal bowel sounds. SKIN: Skin is clear with no lesions or rashes and otherwise unremarkable. NEUROLOGIC: Patient is alert and oriented x3. Cranial nerves II through XII are grossly intact. Motor and sensory are also intact. Normal speech, volume and content. Symmetrical smile. MUSCULOSKELETAL: Normal extremities with adequate strength and full range of motion. LYMPHATICS: No significant lymphadenopathy is noted PSYCHIATRIC: Patient is mildly anxious Limitations: no limitations Course Vital Signs 06/25/23 06/25/23 06/25/23 09:39 09:43 10:43 Temperature 98.4 F Pulse Rate 85 77 76 Respiratory 18 20 16 Rate Blood Pressure 156/94 138/87 138/92 O2 Sat by Pulse 98 96 98 Oximetry 06/25/23 06/25/23 06/25/23 11:00 11:13 11:41 Temperature Pulse Rate 70 74 86 Respiratory 20 Rate Blood Pressure 138/90 O2 Sat by Pulse 98 Oximetry 06/25/23 12:00 Temperature Pulse Rate 100 Respiratory 20 Rate Blood Pressure 129/76 O2 Sat by Pulse 95 Oximetry Medical Decision Making - Medical Decision Making EKG shows turbid by myself. EKG shows a sinus rhythm at 79 bpm FL interval 150 QRS under 90 QT intervals 373 QTC is 408. Patient's EKG shows no ST segment e levation or depression Was pt. sent in by a medical professional or institution (Dr., PA, VENEER DRIER TAILER, urgent care, hospital, or residential...) When possible be specific @ -No Did you speak to anyone other than the patient for history (EMS, parent, family, police, friend...)? What history was obtained from this source @ -No Did you review nursing and triage notes (agree or disagree)? Why? @ -I reviewed and agree with nursing and triage notes Were old charts reviewed (outside hosp., previous admission, EMS record, old EKG, old radiological studies, urgent care reports/EKG's, residential records)? Report findings @ -Reviewed prior charts prior lab work on this patient Differential Diagnosis (chest pain, altered mental status, abdominal pain women, abdominal pain men, vaginal bleeding, weakness, fever, dyspnea, syncope, he adache, dizziness, GI bleed, back pain, seizure, CVA, palpatations, mental health, musculoskeletal)? @ -Differential Dyspnea: Coronary syndrome, arrhythmia, tamponade, asthma, COPD, pulmonary embolism, pneumonia, pneumothorax, pulmonary effusion, anaphylaxis, diabetic ketoacidosis, flailed chest, pulmonary contusion, diaphragmatic rupture, anemia, neuromuscular, this is not meant to be an all-inclusive list. EKG interpreted by me (3pts min.). @ -As above X-rays interpreted by me (1pt min.). @ -Chest x-ray showed no acute abnormality CT interpreted by me (1pt min.). @ -None done U/S interpreted by me (1pt. min.). @ -None done What testing was considered but not performed or refused? (CT, X-rays, U/S, labs)? Why? @ -None What meds were considered but not given or refused? Why? @ -None Did you discuss the management of the patient with other professionals (professionals i.e. HEIDY Bermudez, VENEER DRIER TAILER, lab, RT, psych nurse, social security assessor, circus hand, teacher, foreign policy officer, senior case manager)? Give summary @ -No Was smoking cessation discussed for >3mins.? @ -No Was critical care preformed (if so, how long)? @ -No Were there social determinants of health that impacted care today? How? (Homelessness, low income, unemployed, alcoholism, drug addiction, transportation, low edu. Level, literacy, decrease access to med. care, nursing home, rehab)? @ -No Was there de-escalation of care discussed even if they declined (Discuss DNR or withdrawal of care, Hospice)? DNR status @ -No What co-morbidities impacted this encounter? (DM, HTN, Smoking, COPD, CAD, Can cer, CVA, ARF, Chemo, Hep., AIDS, mental health diagnosis, sleep apnea, morbid obesity)? @ -None Was patient admitted / discharged? Hospital course, mention meds given and route, prescriptions, significant lab abnormalities, going to OR and other pertinent info. @ -Patient received 2 breathing treatments in the emergency department as well as steroids. Patient also got antibiotics for the cough and sputum production. Patient stated he felt much better after the treatments. I went and listened to him he had no more wheezing at this time he was comfortable going home at this time. Patient also did receive Ativan for a little bit of his anxiety. Undiagnosed new problem with uncertain prognosis? @ -No Drug Therapy requiring intensive monitoring for toxicity (Heparin, Nitro, I nsulin, Cardizem)? @ -No Were any procedures done? @ -No Diagnosis/symptom? @ -COPD exacerbation Acute, or Chronic, or Acute on Chronic? @ -Acute Uncomplicated (without systemic symptoms) or Complicated (systemic symptoms)? @ -Complicated Side effects of treatment? @ -No Exacerbation, Progression, or Severe Exacerbation? @ -No Poses a threat to life or bodily function? How? (Chest pain, USA, [place], pneumonia, PE, COPD, DKA, ARF, appy, cholecystitis, CVA, Diverticulitis, Homicidal, Suicidal, threat to staff... and all critical care pts) @ -No Diagnosis/symptom? @ -bronchitis Acute, or Chronic, or Acute on Chronic? @ -Acute Uncomplicated (without systemic symptoms) or Complicated (systemic symptoms)? @ -default Side effects of treatment? @ -none Exacerbation, Progression, or Severe Exacerbation] @ -Exacerbation Poses a threat to life or bodily function? @ -no - Lab Data Result diagrams: 06/25/23 09:49 06/25/23 09:49 Lab Results 06/25/23 06/25/23 06/25/23 Range/Units 09:49 09:49 09:49 WBC 4.6 (3.8-10.6) k/uL RBC 4.22 L (4.30-5.90) m/uL Hgb 15.0 (13.0-17.5) gm/dL Hct 43.2 (39.0-53.0) % MCV 102.3 H (80.0-100.0) fL MCH 35.5 H (25.0-35.0) pg MCHC 34.7 (31.0-37.0) g/dL RDW 12.2 (11.5-15.5) % Plt Count 251 (150-450) k/uL MPV 7.4 Neutrophils % (Manual) 62 % Lymphocytes % (Manual) 28 % Monocytes % (Manual) 5 % Eosinophils % (Manual) 5 % Neutrophils # (Manual) 2.85 (1.3-7.7) k/uL Lymphocytes # (Manual) 1.29 (1.0-4.8) k/uL Monocytes # (Manual) 0.23 (0-1.0) k/uL Eosinophils # (Manual) 0.23 (0-0.7) k/uL Nucleated RBCs 0 (0-0) /100 WBC Manual Slide Review Performed Macrocytosis Slight PT 10.3 (10.0-12.5) sec INR 0.9 (<1.2) APTT 23.9 (22.0-30.0) sec D-Dimer 0.24 (<0.60) mg/L FEU Sodium 139 (137-145) mmol/L Potassium 4.6 (3.5-5.1) mmol/L Chloride 106 (98-107) mmol/L Carbon Dioxide 22 (22-30) mmol/L Anion Gap 11 mmol/L BUN 13 (9-20) mg/dL Creatinine 0.58 L (0.66-1.25) mg/dL Est GFR (CKD-EPI)AfAm >90 (>60 ml/min/1.73 sqM) Est GFR (CKD-EPI)NonAf >90 (>60 ml/min/1.73 sqM) Glucose 122 H (74-99) mg/dL Plasma Lactic Acid Jose (0.7-2.0) mmol/L Calcium 9.4 (8.4-10.2) mg/dL Magnesium 2.0 (1.6-2.3) mg/dL Total Bilirubin 0.4 (0.2-1.3) mg/dL AST 76 H (17-59) U/L ALT 49 (4-49) U/L Alkaline Phosphatase 82 (38-126) U/L Troponin I (0.000-0.034) ng/mL Total Protein 7.5 (6.3-8.2) g/dL Albumin 4.5 (3.5-5.0) g/dL Influenza Type A (PCR) (Not Detectd) Influenza Type B (PCR) (Not Detectd) RSV (PCR) (Not Detectd) SARS-CoV-2 (PCR) (Not Detectd) 06/25/23 06/25/23 06/25/23 Range/Units 09:49 09:49 11:31 WBC (3.8-10.6) k/uL RBC (4.30-5.90) m/uL Hgb (13.0-17.5) gm/dL Hct (39.0-53.0) % MCV (80.0-100.0) fL MCH (25.0-35.0) pg MCHC (31.0-37.0) g/dL RDW (11.5-15.5) % Plt Count (150-450) k/uL MPV Neutrophils % (Manual) % Lymphocytes % (Manual) % Monocytes % (Manual) % Eosinophils % (Manual) % Neutrophils # (Manual) (1.3-7.7) k/uL Lymphocytes # (Manual) (1.0-4.8) k/uL Monocytes # (Manual) (0-1.0) k/uL Eosinophils # (Manual) (0-0.7) k/uL Nucleated RBCs (0-0) /100 WBC Manual Slide Review Macrocytosis PT (10.0-12.5) sec INR (<1.2) APTT (22.0-30.0) sec D-Dimer (<0.60) mg/L FEU Sodium (137-145) mmol/L Potassium (3.5-5.1) mmol/L Chloride (98-107) mmol/L Carbon Dioxide (22-30) mmol/L Anion Gap mmol/L BUN (9-20) mg/dL Creatinine (0.66-1.25) mg/dL Est GFR (CKD-EPI)AfAm (>60 ml/min/1.73 sqM) Est GFR (CKD-EPI)NonAf (>60 ml/min/1.73 sqM) Glucose (74-99) mg/dL Plasma Lactic Acid Jose 2.0 (0.7-2.0) mmol/L Calcium (8.4-10.2) mg/dL Magnesium (1.6-2.3) mg/dL Total Bilirubin (0.2-1.3) mg/dL AST (17-59) U/L ALT (4-49) U/L Alkaline Phosphatase (38-126) U/L Troponin I <0.012 (0.000-0.034) ng/mL Total Protein (6.3-8.2) g/dL Albumin (3.5-5.0) g/dL Influenza Type A (PCR) Not Detected (Not Detectd) Influenza Type B (PCR) Not Detected (Not Detectd) RSV (PCR) Not Detected (Not Detectd) SARS-CoV-2 (PCR) Not Detected (Not Detectd) Disposition Clinical Impression: COPD exacerbation, Acute bronchitis Disposition: HOME SELF-CARE Condition: Good Instructions (If sedation given, give patient instructions): Acute Bronchitis (ED), COPD (Chronic Obstructive Pulmonary Disease) (ED) Prescriptions: predniSONE [Deltasone] 40 mg PO DAILY #8 tab Albuterol Inhaler [Ventolin Hfa Inhaler] 1 - 2 puff INHALATION Q6HR PRN #2 each PRN Reason: Difficulty breathing Azithromycin [Zithromax Tri-Domenic (3 tabs)] 500 mg PO DAILY 3 Days #3 tab Is patient prescribed a controlled substance at d/c from ED?: No Referrals: None,Stated [Primary Care Provider] - 1-2 days Time of Disposition: 12:38
[2023-06-25] MEDS ORDERED: cefTRIAXone IN SWFI 1,000 MG/10 ML SYRINGE IVP STA (12:34)
[2023-06-25 13:02] VITALS: BP 140/60; PULSE 86; RESP 16
== END 2023-06-25 12:59 | disposition home or self-care (01) ==
LOC: EC 09:37
DX: J44.1 Chronic obstructive pulmonary disease with (acute) exacerbation (principal); J20.9 Acute bronchitis, unspecified; I44.4 Left anterior fascicular block; F17.200 Nicotine dependence, unspecified, uncomplicated; Z20.822 Contact with and (suspected) exposure to COVID-19
CPT/HCPCS: 36415; 94640; 93005; 85379; 80053; 83605; 83735; 84484; 85025; 85610; 85730; 87040; 87636; 71046; 96374; 96375 ×3; 99285; J2060; J2930; J0696

== ENCOUNTER 2023-08-22 13:26 | Emergency (ER) | payer MEDICARE ==
[2023-08-22 13:59] VITALS: TEMP 98.2
--- NOTE | 2023-08-22 14:02 | ED ---
General Adult HPI - General Chief complaint: Abdominal Pain Stated complaint: Abd Pain Time Seen by Provider: 08/22/23 13:39 Source: patient, RN notes reviewed Mode of arrival: ambulatory Limitations: no limitations - History of Present Illness Initial comments: Patient is a 58-year-old male present to the emergency department with concerns with abdominal discomfort. Symptoms have slowly progressed over the past month. Patient admits to drinking large amounts of alcohol, more than normal last night. No nausea or vomiting. No constipation or diarrhea. Patient has had some decreased oral intake and fullness with oral intake. No history of similar symptoms previously. No fever. Discomfort is epigastric - Related Data Previous Rx's Medication Instructions Recorded LORazepam [Ativan] 1 mg PO TID PRN #8 tab 06/24/16 Doxycycline Hyclate 100 mg PO BID 7 Days #14 tab 08/26/22 Pseudoephedrine 12Hr [Sudafed 12 120 mg PO Q12HR PRN #10 tab 08/26/22 Hour] Albuterol Inhaler [Ventolin Hfa 1 puff INHALATION QID #8 gm 11/06/22 Inhaler] Azithromycin [Zithromax] 250 mg PO DAILY 4 Days #4 tab 11/06/22 Lidocaine 5% Patch [Lidoderm 5% 14 patch TOPICAL DAILY PRN #14 11/06/22 Patch] patch predniSONE [Deltasone] 40 mg PO DAILY 5 Days #10 tab 11/06/22 Albuterol Inhaler [Ventolin Hfa 1 - 2 puff INHALATION Q6HR PRN #2 06/25/23 Inhaler] each Azithromycin [Zithromax Tri-Domenic (3 500 mg PO DAILY 3 Days #3 tab 06/25/23 tabs)] predniSONE [Deltasone] 40 mg PO DAILY #8 tab 06/25/23 Pantoprazole [Protonix] 40 mg PO DAILY #30 tab 08/22/23 Allergies Allergy/AdvReac Type Severity Reaction Status Date / Time No Known Allergies Allergy Verified 08/26/22 15:35 Review of Systems ROS Statement: Those systems with pertinent positive or pertinent negative responses have been documented in the HPI. ROS Other: All systems not noted in ROS Statement are negative. Constitutional: Denies: fever, chills Eyes: Denies: eye pain ENT: Denies: ear pain Respiratory: Denies: cough Cardiovascular: Denies: chest pain Endocrine: Denies: fatigue Gastrointestinal: Reports: as per HPI, abdominal pain. Denies: nausea, vomiting, diarrhea, constipation Genitourinary: Denies: dysuria Musculoskeletal: Denies: back pain Skin: Denies: rash Past Medical History Past Medical History: COPD Additional Past Medical History / Comment(s): back pain History of Any Multi-Drug Resistant Organisms: None Reported Past Surgical History: No Surgical Hx Reported Additional Past Surgical History / Comment(s): METAL PLATE IN RIGHT EYE SOCKET Past Psychological History: No Psychological Hx Reported Smoking Status: Current every day smoker Past Alcohol Use History: Abuse, Heavy Past Drug Use History: Prescription Drug Abuse General Exam Limitations: no limitations General appearance: alert, in no apparent distress Head exam: Present: normocephalic Eye exam: Present: normal appearance ENT exam: Present: mucous membranes dry Neck exam: Present: normal inspection Respiratory exam: Present: normal lung sounds bilaterally Cardiovascular Exam: Present: tachycardia, normal heart sounds Expanded Peripheral pulses: 2+: Radial (R), Radial (L), Dorsalis Pedis (R), Dorsalis Pedis (L) GI/Abdominal exam: Present: soft, tenderness (Moderate epigastric tenderness), guarding (Mild epigastric), normal bowel sounds. Absent: distended, rebound, rigid, pulsatile mass Extremities exam: Present: normal inspection Neurological exam: Present: alert Psychiatric exam: Present: normal affect, normal mood Skin exam: Present: normal color Course Vital Signs 08/22/23 08/22/23 08/22/23 13:32 13:43 13:45 Temperature 98.2 F Pulse Rate 131 H 129 H 119 H Respiratory 20 20 Rate Blood Pressure 161/98 163/94 O2 Sat by Pulse 95 96 96 Oximetry 08/22/23 08/22/23 14:00 14:36 Temperature Pulse Rate 112 H 109 H Respiratory 20 Rate Blood Pressure 163/94 145/94 O2 Sat by Pulse 95 95 Oximetry EKG Findings - EKG Results: EKG: interpreted by ERMD (Left axis.), sinus rhythm, normal ST/T EKG shows: tachycardia Medical Decision Making - Medical Decision Making Was pt. sent in by a medical professional or institution (, PA, CNC MACHINE SETTER, urgent care, hospital, or detention...) When possible be specific @ -No Did you speak to anyone other than the patient for history (EMS, parent, family, police, friend...)? What history was obtained from this source @ -No Did you review nursing and triage notes (agree or disagree)? Why? @ -I reviewed and agree with nursing and triage notes Were old charts reviewed (outside hosp., previous admission, EMS record, old EKG, old radiological studies, urgent care reports/EKG's, detention records)? Report findings @ -No old charts were reviewed Differential Diagnosis (chest pain, altered mental status, abdominal pain women, abdominal pain men, vaginal bleeding, weakness, fever, dyspnea, syncope, headache, dizziness, GI bleed, back pain, seizure, CVA, palpatations, mental h ealth, musculoskeletal)? @ -Differential Abdominal Pain Men: Appendicitis, cholecystitis, diverticulosis, ischemic bowel, pancreatitis, hepatitis, UTI, gastroenteritis, AAA, incarcerated hernia, bowel obstruction, constipation, inflammatory bowel, hepatitis, peptic ulcer disease, splenic infarction, perforated viscus, testicular torsion, this is not meant to be an all-inclusive list EKG interpreted by me (3pts min.). @ -As above X-rays interpreted by me (1pt min.). @ -None done CT interpreted by me (1pt min.). @ -CT scan abdomen pelvis shows nonspecific lower inflammation U/S interpreted by me (1pt. min.). @ -None done What testing was considered but not performed or refused? (CT, X-rays, U/S, labs)? Why? @ -None What meds were considered but not given or refused? Why? @ -None Did you discuss the management of the patient with other professionals (professionals i.e. , PA, CNC MACHINE SETTER, lab, RT, psych nurse, hospice social worker, cleaning crew member, teacher, chief commercial officer, bottle caser)? Give summary @ -No Was smoking cessation discussed for >3mins.? @ -No Was critical care preformed (if so, how long)? @ -No Were there social determinants of health that impacted care today? How? (Homelessness, low income, unemployed, alcoholism, drug addiction, transportation, low edu. Level, literacy, decrease access to med. care, senior care, rehab)? @ -No Was there de-escalation of care discussed even if they declined (Discuss DNR or withdrawal of care, Hospice)? DNR status @ -No What co-morbidities impacted this encounter? (DM, HTN, Smoking, COPD, CAD, Cancer, CVA, ARF, Chemo, Hep., AIDS, mental health diagnosis, sleep apnea, morbid obesity)? @ -None Was patient admitted / discharged? Hospital course, mention meds given and route, prescriptions, significant lab abnormalities, going to OR and other pe rtinent info. @ -Patient reevaluated and feels much better. Patient is updated on results and need for follow-up. He states he does have an appointment next week with surgery and is advised to have scope done as well as follow-up with primary care physician Undiagnosed new problem with uncertain prognosis? @ -No Drug Therapy requiring intensive monitoring for toxicity (Heparin, Nitro, Insulin, Cardizem)? @ -No Were any procedures done? @ -No Diagnosis/symptom? @ -Abdominal pain Acute, or Chronic, or Acute on Chronic? @ -Acute Uncomplicated (without systemic symptoms) or Complicated (systemic symptoms)? @ -Default Side effects of treatment? @ -No Exacerbation, Progression, or Severe Exacerbation? @ -No Poses a threat to life or bodily function? How? (Chest pain, [place], [place], pneumonia, PE, COPD, DKA, ARF, appy, cholecystitis, CVA, Diverticulitis, Homicidal, Suicidal, threat to staff... and all critical care pts) @ -No - Lab Data Result diagrams: 08/22/23 14:02 08/22/23 14:02 Lab Results 08/22/23 08/22/23 08/22/23 Range/Units 14:02 14:02 14:02 WBC 8.6 (3.8-10.6) k/uL RBC 4.68 (4.30-5.90) m/uL Hgb 16.3 (13.0-17.5) gm/dL Hct 48.4 (39.0-53.0) % MCV 103.3 H (80.0-100.0) fL MCH 34.8 (25.0-35.0) pg MCHC 33.7 (31.0-37.0) g/dL RDW 13.1 (11.5-15.5) % Plt Count 214 (150-450) k/uL MPV 7.8 Neutrophils % 71 % Lymphocytes % 17 % Monocytes % 8 % Eosinophils % 2 % Basophils % 0 % Neutrophils # 6.1 (1.3-7.7) k/uL Lymphocytes # 1.4 (1.0-4.8) k/uL Monocytes # 0.7 (0-1.0) k/uL Eosinophils # 0.2 (0-0.7) k/uL Basophils # 0.0 (0-0.2) k/uL Macrocytosis Slight PT 9.9 L (10.0-12.5) sec INR 0.9 (<1.2) APTT 23.1 (22.0-30.0) sec Sodium 139 (137-145) mmol/L Potassium 4.0 (3.5-5.1) mmol/L Chloride 105 (98-107) mmol/L Carbon Dioxide 21 L (22-30) mmol/L Anion Gap 13 mmol/L BUN 15 (9-20) mg/dL Creatinine 0.51 L (0.66-1.25) mg/dL Est GFR (CKD-EPI)AfAm >90 (>60 ml/min/1.73 sqM) Est GFR (CKD-EPI)NonAf >90 (>60 ml/min/1.73 sqM) Glucose 143 H (74-99) mg/dL Calcium 9.6 (8.4-10.2) mg/dL Total Bilirubin 0.6 (0.2-1.3) mg/dL AST 267 H (17-59) U/L ALT 179 H (4-49) U/L Alkaline Phosphatase 111 (38-126) U/L Total Protein 7.8 (6.3-8.2) g/dL Albumin 4.7 (3.5-5.0) g/dL Amylase 74 (30-110) U/L Lipase 93 (23-300) U/L Serum Alcohol <10 mg/dL Disposition Clinical Impression: Abdominal pain Disposition: HOME SELF-CARE Condition: Stable Instructions (If sedation given, give patient instructions): Abdominal Pain (ED), Gastritis (ED) Additional Instructions: Prescription sent to pharmacy. Please do follow-up with primary care physician in the next day or 2 for recheck. Have primary care physician and surgeon check CT scan results. Please follow-up with Dr. Mcdonald next week as planned. Return for fever, uncontrolled vomiting, worsening symptoms or any other concerns. Decrease alcohol use Prescriptions: Pantoprazole [Protonix] 40 mg PO DAILY #30 tab Is patient prescribed a controlled substance at d/c from ED?: No Referrals: Raman Mcdonald MD [STAFF PHYSICIAN] - 1-2 days Blue Villegas MD [STAFF PHYSICIAN] - 1-2 days Time of Disposition: 15:48
[2023-08-22 14:15] LABS: Basophils % (A) 0 %; Eosinophils # (A) 0.2 k/uL (0-0.7); Eosinophils % (A) 2 %; HCT 48.4 % (39.0-53.0); HGB 16.3 gm/dL (13.0-17.5); Lymphocytes # (A) 1.4 k/uL (1.0-4.8); Lymphocytes % (A) 17 %; MCH 34.8 pg (25.0-35.0); MCHC 33.7 g/dL (31.0-37.0); MCV 103.3 fL (80.0-100.0); Macrocytosis Slight; Mean Platelet Volume 7.8; Monocytes # (A) 0.7 k/uL (0-1.0); Monocytes % (A) 8 %; Neutrophils # (A) 6.1 k/uL (1.3-7.7); Neutrophils % (A) 71 %; Platelet Count 214 k/uL (150-450); RBC 4.68 m/uL (4.30-5.90); RDW 13.1 % (11.5-15.5); WBC 8.6 k/uL (3.8-10.6)
[2023-08-22 14:18] LABS: INR 0.9 (<1.2); Partial Thromboplastin Time 23.1 sec (22.0-30.0); Prothrombin Time 9.9 sec (10.0-12.5)
[2023-08-22 14:23] LABS: ALT 179 U/L (4-49); AST 267 U/L (17-59); African American GFR (CKD) >90 (>60 ml/min/1.73 sqM); Albumin 4.7 g/dL (3.5-5.0); Alcohol <10 mg/dL; Alkaline Phosphatase 111 U/L (38-126); Amylase 74 U/L (30-110); Anion Gap 13 mmol/L; Blood Urea Nitrogen 15 mg/dL (9-20); Calcium 9.6 mg/dL (8.4-10.2); Carbon Dioxide 21 mmol/L (22-30); Chloride 105 mmol/L (98-107); Glucose 143 mg/dL (74-99); Lipase 93 U/L (23-300); Non-African American GFR(CKD) >90 (>60 ml/min/1.73 sqM); Sodium 139 mmol/L (137-145); Total Bilirubin 0.6 mg/dL (0.2-1.3); Total Protein 7.8 g/dL (6.3-8.2)
[2023-08-22] MEDS: HYDROmorphone 1 MG/ML 1 ML SYRINGE IVP STA (14:30)
[2023-08-22] MEDS: SODIUM CHLORIDE 0.9% 1,000 ML IV STA (14:49)
[2023-08-22] MEDS: PANTOPRAZOLE 40 MG/10 ML VIAL IVP STA (14:49)
--- NOTE | 2023-08-22 14:59 | CT ---
EXAMINATION TYPE: CT abdomen pelvis w con CT DLP: 580.8 mGycm, Automated exposure control for dose reduction was used. DATE OF EXAM: 08/22/2023 2:49 PM COMPARISON: None. CLINICAL INDICATION:Male, 58 years old with history of abdominal pain; abdominal pain, pressure and b loating x1 month TECHNIQUE: Axial CT of the abdomen and pelvis. Sagittal and coronal reformats were created on a [employer] workstation. Contrast used:100ml mL of Isovue 370 with IV Contrast, (none if empty) Oral contrast used: without Oral Contrast (none if empty) FINDINGS: LOWER CHEST: Unremarkable ABDOMEN LIVER: Diffuse hypoattenuation of the liver parenchyma. GALLBLADDER AND BILE DUCTS: Unremarkable. PANCREAS: Unremarkable. SPLEEN: Unremarkable. ADRENAL GLANDS: Unremarkable. KIDNEYS AND URETERS: No evidence of hydronephrosis or renal calculus. The ureters are unremarkable. PELVIS BLADDER: Unremarkable REPRODUCTIVE: Unremarkable. ABDOMEN & PELVIS STOMACH AND BOWEL: Stomach and duodenum are unremarkable. Mild hyperenhancement of the mucosa of the rectosigmoid colon. No evidence of bowel obstruction. PERITONEUM/RETROPERITONEUM: No evidence of pneumoperitoneum or free fluid. VASCULATURE: Moderate atherosclerotic calcifications are present throughout the abdominal aorta and i ts branches. No evidence of aortic aneurysm. MUSCULOSKELETAL: No acute osseous abnormalities LYMPH NODES: No gross evidence for lymphadenopathy. SOFT TISSUE/ABDOMINAL WALL: Unremarkable IMPRESSION: 1. Mild mucosal hyperenhancement of the rectosigmoid colon. Finding is nonspecific but may relate to underlying inflammation/infection. 2. Hepatic steatosis.
[2023-08-22 16:19] VITALS: BP 136/93; PULSE 113; RESP 18
== END 2023-08-22 16:07 | disposition home or self-care (01) ==
LOC: EC 13:26
DX: K76.0 Fatty (change of) liver, not elsewhere classified (principal); F17.200 Nicotine dependence, unspecified, uncomplicated
CPT/HCPCS: 36415; 93005; 80053; 82150; 83690; 85025; 85610; 85730; 80320; 74177; 99284; 96374; 96375; 96361; J1170; C9113; Q9967

== ENCOUNTER 2023-08-25 16:08 | Emergency (ER) | payer MEDICARE ==
[2023-08-25 16:45] VITALS: BP 133/78; PULSE 100; RESP 20; TEMP 98
--- NOTE | 2023-08-25 17:24 | ED ---
Extremity Problem HPI - General Chief complaint: Extremity Problem,Nontraumatic Stated complaint: R big toe pain Time Seen by Provider: 08/25/23 16:34 Source: patient Mode of arrival: ambulatory Limitations: no limitations - History of Present Illness Initial comments: 58-year-old male presenting to the ED with a chief complaint of right toe pain. Patient reports yesterday was having some achiness of his left knee which is now resolved today however states when he woke up today and went to stand up noticed pain of his foot/right great toe. There is some associated redness with this as well. Patient denies fever or chills. Denies any recent injury. No chest pain or shortness of breath. No other complaints at this time. Patient is a smoker. - Related Data Previous Rx's Medication Instructions Recorded LORazepam [Ativan] 1 mg PO TID PRN #8 tab 06/24/16 Doxycycline Hyclate 100 mg PO BID 7 Days #14 tab 08/26/22 Pseudoephedrine 12Hr [Sudafed 12 120 mg PO Q12HR PRN #10 tab 08/26/22 Hour] Albuterol Inhaler [Ventolin Hfa 1 puff INHALATION QID #8 gm 11/06/22 Inhaler] Azithromycin [Zithromax] 250 mg PO DAILY 4 Days #4 tab 11/06/22 Lidocaine 5% Patch [Lidoderm 5% 14 patch TOPICAL DAILY PRN #14 11/06/22 Patch] patch predniSONE [Deltasone] 40 mg PO DAILY 5 Days #10 tab 11/06/22 Albuterol Inhaler [Ventolin Hfa 1 - 2 puff INHALATION Q6HR PRN #2 06/25/23 Inhaler] each Azithromycin [Zithromax Tri-Domenic (3 500 mg PO DAILY 3 Days #3 tab 06/25/23 tabs)] predniSONE [Deltasone] 40 mg PO DAILY #8 tab 06/25/23 Pantoprazole [Protonix] 40 mg PO DAILY #30 tab 08/22/23 Clindamycin [Cleocin] 450 mg PO Q6H 7 Days #63 capsule 08/25/23 Allergies Allergy/AdvReac Type Severity Reaction Status Date / Time No Known Allergies Allergy Verified 08/26/22 15:35 Review of Systems ROS Statement: Those systems with pertinent positive or pertinent negative responses have been documented in the HPI. ROS Other: All systems not noted in ROS Statement are negative. Past Medical History Past Medical History: COPD Additional Past Medical History / Comment(s): back pain History of Any Multi-Drug Resistant Organisms: None Reported Past Surgical History: No Surgical Hx Reported Additional Past Surgical History / Comment(s): METAL PLATE IN RIGHT EYE SOCKET Past Psychological History: No Psychological Hx Reported Smoking Status: Current every day smoker Past Alcohol Use History: Abuse, Heavy Past Drug Use History: Prescription Drug Abuse General Exam Limitations: no limitations General appearance: alert, in no apparent distress Eye exam: Present: normal appearance Neck exam: Present: normal inspection Respiratory exam: Present: wheezes Cardiovascular Exam: Present: regular rate GI/Abdominal exam: Present: soft Extremities exam: Present: other (There is tenderness to palpation of the right great toe with surrounding erythema. No significant swelling. Erythema does seem to streak up the foot.) Neurological exam: Present: alert, oriented X3 Skin exam: Present: warm, dry Course Vital Signs 08/25/23 16:31 Temperature 98 F Pulse Rate 100 Respiratory 20 Rate Blood Pressure 133/78 O2 Sat by Pulse 96 Oximetry Medical Decision Making - Medical Decision Making Was pt. sent in by a medical professional or institution (, PA, PROGRAMMING EQUIPMENT OPERATOR, urgent care, hospital, or penitentiary...) When possible be specific @ -No Did you speak to anyone other than the patient for history (EMS, parent, family, police, friend...)? What history was obtained from this source @ -No Did you review nursing and triage notes (agree or disagree)? Why? @ -I reviewed and agree with nursing and triage notes Were old charts reviewed (outside hosp., previous admission, EMS record, old EKG, old radiological studies, urgent care reports/EKG's, penitentiary records)? Report findings @ -No old charts were reviewed Differential Diagnosis (chest pain, altered mental status, abdominal pain women, abdominal pain men, vaginal bleeding, weakness, fever, dyspnea, syncope, he adache, dizziness, GI bleed, back pain, seizure, CVA, palpatations, mental health, musculoskeletal)? @ -Differential Musculoskeletal Muscular strain, contusion, ligament sprain, fracture, arthritis, septic arthritis, bursitis, cellulitis, muscle spasm, nerve compression, DVT, arterial occlusion, herpes zoster, electrolyte abnormality, tumor.... This is not meant to be in all inclusive list EKG interpreted by me (3pts min.). @ -As above X-rays interpreted by me (1pt min.). @ -X-ray interpreted me which revealed no evidence of fracture, osteomyelitis, or other acute finding. CT interpreted by me (1pt min.). @ -None done U/S interpreted by me (1pt. min.). @ -None done What testing was considered but not performed or refused? (CT, X-rays, U/S, labs)? Why? @ -None What meds were considered but not given or refused? Why? @ -None Did you discuss the management of the patient with other professionals (professionals i.e. DrJohn, PA, PROGRAMMING EQUIPMENT OPERATOR, lab, RT, psych nurse, healthcare social worker, manager user interface, teacher, executive officer special warfare team, rn field case manager)? Give summary @ -No Was smoking cessation discussed for >3mins.? @ -No Was critical care preformed (if so, how long)? @ -No Were there social determinants of health that impacted care today? How? (Homelessness, low income, unemployed, alcoholism, drug addiction, transportation, low edu. Level, literacy, decrease access to med. care, skilled nursing, rehab)? @ -No Was there de-escalation of care discussed even if they declined (Discuss DNR or withdrawal of care, Hospice)? DNR status @ -No What co-morbidities impacted this encounter? (DM, HTN, Smoking, COPD, CAD, Cancer, CVA, ARF, Chemo, Hep., AIDS, mental health diagnosis, sleep apnea, morbid obesity)? @ -Alcoholism Was patient admitted / discharged? Hospital course, mention meds given and route, prescriptions, significant lab abnormalities, going to OR and other pertinent info. @ -Discharge The 58-year-old alcoholic male presenting to the ED with a 1 day complaint of right great toe pain. On examination does have some erythema, warmth, tenderness to palpation of the right great toe however erythema does appear to streak up the foot. Less likely consistent with gout secondary to this finding. X-ray revealed no evidence of osteomyelitis or other acute finding. Patient will be discharged home with prescription for clindamycin. Laboratory studies do show a macrocytic anemia with hemoglobin stable at 12. Patient provided B12, folate, thiamine in the ED. Advise close follow-up with PCP. Provided referral to see PCP. Discharged home in stable condition. Discussed return precautions with patient who verbalized agreement. Undiagnosed new problem with uncertain prognosis? @ -No Drug Therapy requiring intensive monitoring for toxicity (Heparin, Nitro, Insulin, Cardizem)? @ -No Were any procedures done? @ -No Diagnosis/symptom? @ -Cellulitis of right great toe, macrocytic anemia Acute, or Chronic, or Acute on Chronic? @ -Acute Uncomplicated (without systemic symptoms) or Complicated (systemic symptoms)? @ -Uncomplicated Side effects of treatment? @ -No Exacerbation, Progression, or Severe Exacerbation? @ -No Poses a threat to life or bodily function? How? (Chest pain, [place], [place], pneumonia, PE, COPD, DKA, ARF, appy, cholecystitis, CVA, Diverticulitis, Homicidal, Suicidal, threat to staff... and all critical care pts) @ -No - Lab Data Result diagrams: 08/25/23 17:42 08/25/23 17:42 Lab Results 08/25/23 08/25/23 Range/Units 17:42 17:42 WBC 8.3 (3.8-10.6) k/uL RBC 3.60 L (4.30-5.90) m/uL Hgb 12.9 L D (13.0-17.5) gm/dL Hct 38.9 L (39.0-53.0) % MCV 108.0 H (80.0-100.0) fL MCH 35.8 H (25.0-35.0) pg MCHC 33.1 (31.0-37.0) g/dL RDW 12.5 (11.5-15.5) % Plt Count 142 L (150-450) k/uL MPV 8.3 Neutrophils % 69 % Lymphocytes % 16 % Monocytes % 10 % Eosinophils % 1 % Basophils % 0 % Neutrophils # 5.8 (1.3-7.7) k/uL Lymphocytes # 1.3 (1.0-4.8) k/uL Monocytes # 0.8 (0-1.0) k/uL Eosinophils # 0.1 (0-0.7) k/uL Basophils # 0.0 (0-0.2) k/uL Macrocytosis Moderate Sodium 135 L (137-145) mmol/L Potassium 3.6 (3.5-5.1) mmol/L Chloride 101 (98-107) mmol/L Carbon Dioxide 23 (22-30) mmol/L Anion Gap 11 mmol/L BUN 7 L (9-20) mg/dL Creatinine 0.46 L (0.66-1.25) mg/dL Est GFR (CKD-EPI)AfAm >90 (>60 ml/min/1.73 sqM) Est GFR (CKD-EPI)NonAf >90 (>60 ml/min/1.73 sqM) Glucose 93 (74-99) mg/dL Calcium 9.2 (8.4-10.2) mg/dL Total Bilirubin 1.0 (0.2-1.3) mg/dL AST 81 H (17-59) U/L ALT 89 H (4-49) U/L Alkaline Phosphatase 90 (38-126) U/L Total Protein 7.1 (6.3-8.2) g/dL Albumin 4.4 (3.5-5.0) g/dL Disposition Clinical Impression: Cellulitis, Macrocytic anemia Disposition: HOME SELF-CARE Condition: Good Additional Instructions: Please return to the Emergency Department if symptoms worsen or any other concerns. Please follow-up with primary care. Prescriptions: Clindamycin [Cleocin] 450 mg PO Q6H 7 Days #63 capsule Is patient prescribed a controlled substance at d/c from ED?: No Referrals: None,Stated [Primary Care Provider] - 1-2 days Blue Villegas MD [STAFF PHYSICIAN] - 1-2 days Jero Booker MD [REFERRING] - 1-2 days Rayshawn Patel DO [REFERRING] - 1-2 days Matt Serrato MD [REFERRING] - 1-2 days Blue Hudson MD [STAFF PHYSICIAN] - 1-2 days Karissa Slade III, MD [STAFF PHYSICIAN] - 1-2 days Maira Gómez MD [STAFF PHYSICIAN] - 1-2 days Deshawn Rivera MD [REFERRING] - 1-2 days Ziggy Acevedo [REFERRING] - 1-2 days Time of Disposition: 18:57
[2023-08-25] MEDS: SODIUM CHLORIDE 0.9% 1,000 ML IV STA (17:36)
[2023-08-25] MEDS: KETOROLAC 15 MG/ML 1 ML VIAL IVP STA (17:37)
[2023-08-25 18:02] LABS: ALT 89 U/L (4-49); AST 81 U/L (17-59); African American GFR (CKD) >90 (>60 ml/min/1.73 sqM); Albumin 4.4 g/dL (3.5-5.0); Alkaline Phosphatase 90 U/L (38-126); Anion Gap 11 mmol/L; Basophils % (A) 0 %; Blood Urea Nitrogen 7 mg/dL (9-20); Calcium 9.2 mg/dL (8.4-10.2); Carbon Dioxide 23 mmol/L (22-30); Chloride 101 mmol/L (98-107); Eosinophils # (A) 0.1 k/uL (0-0.7); Eosinophils % (A) 1 %; Glucose 93 mg/dL (74-99); HCT 38.9 % (39.0-53.0); Lymphocytes # (A) 1.3 k/uL (1.0-4.8); Lymphocytes % (A) 16 %; MCH 35.8 pg (25.0-35.0); MCHC 33.1 g/dL (31.0-37.0); Macrocytosis Moderate; Mean Platelet Volume 8.3; Monocytes # (A) 0.8 k/uL (0-1.0); Monocytes % (A) 10 %; Neutrophils # (A) 5.8 k/uL (1.3-7.7); Neutrophils % (A) 69 %; Non-African American GFR(CKD) >90 (>60 ml/min/1.73 sqM); Platelet Count 142 k/uL (150-450); Potassium 3.6 mmol/L (3.5-5.1); RDW 12.5 % (11.5-15.5); Sodium 135 mmol/L (137-145); Total Protein 7.1 g/dL (6.3-8.2); WBC 8.3 k/uL (3.8-10.6)
[2023-08-25 18:17] LABS: HGB 12.9 gm/dL (13.0-17.5)
--- NOTE | 2023-08-25 18:35 | XR ---
EXAMINATION TYPE: XR toes RT DATE OF EXAM: 08/25/2023 5:21 PM CLINICAL INDICATION:Male, 58 years old with history of r 1st toe pain; [facility] COMPARISON: None TECHNIQUE: XR toes RT examined in the AP, oblique, and lateral projections. FINDINGS: No evidence of any acute osseous pathology. No evidence of soft tissue swelling. Joints are preserve d. No osseous erosion. IMPRESSION: 1. No evidence of acute fracture. 2. No evidence for osseous erosion.
[2023-08-25] MEDS: FOLIC ACID 1 MG TAB PO STA (19:03)
[2023-08-25] MEDS: THIAMINE 100 MG/ML 2 ML VIAL IM STA (19:03)
[2023-08-25] MEDS: CYANOCOBALAMIN 1,000 MCG/ML 1 ML VIAL IM ONE (19:22)
== END 2023-08-25 19:25 | disposition home or self-care (01) ==
LOC: EC 16:08
DX: L03.031 Cellulitis of right toe (principal); D53.9 Nutritional anemia, unspecified; F17.200 Nicotine dependence, unspecified, uncomplicated
CPT/HCPCS: 36415; 80053; 85025; 73660; 99284; 96374; 96361; 96372 ×2; J3420; J3411; J1885

== ENCOUNTER 2024-01-28 23:34 | Emergency (ER) | payer MEDICARE ==
[2024-01-28 23:48] VITALS: BP 159/85; TEMP 98.4
--- NOTE | 2024-01-28 23:48 | ED ---
SOB HPI - General Stated Complaint: DRUGS Time Seen by Provider: 01/28/24 23:39 Source: RN notes reviewed, old records reviewed Limitations: no limitations - History of Present Illness Initial Comments: This is a 58-year-old male to the ER for evaluation of shortness of breath today shortness of breath is admitting to some anxiety, patient to do meth earlier today and it has been around 15 years since he has done that and in room complains of some chest pain shortness of breath with history of COPD. Patient states as the day went on he felt a little bit better but is still having symptoms of anxiety here in the ER MD Complaint: shortness of breath, "asthma attack", anxiety -: hour(s) Severity: moderate Consistency: constant Improves With: nothing Worsens With: exertion Known History Of: COPD Context: anxiety Associated Symptoms: chest pain - Related Data Previous Rx's Medication Instructions Recorded LORazepam [Ativan] 1 mg PO TID PRN #8 tab 06/24/16 Doxycycline Hyclate 100 mg PO BID 7 Days #14 tab 08/26/22 Pseudoephedrine 12Hr [Sudafed 12 120 mg PO Q12HR PRN #10 tab 08/26/22 Hour] Albuterol Inhaler [Ventolin Hfa 1 puff INHALATION QID #8 gm 11/06/22 Inhaler] Azithromycin [Zithromax] 250 mg PO DAILY 4 Days #4 tab 11/06/22 Lidocaine 5% Patch [Lidoderm 5% 14 patch TOPICAL DAILY PRN #14 11/06/22 Patch] patch predniSONE [Deltasone] 40 mg PO DAILY 5 Days #10 tab 11/06/22 Albuterol Inhaler [Ventolin Hfa 1 - 2 puff INHALATION Q6HR PRN #2 06/25/23 Inhaler] each Azithromycin [Zithromax Tri-Domenic (3 500 mg PO DAILY 3 Days #3 tab 06/25/23 tabs)] predniSONE [Deltasone] 40 mg PO DAILY #8 tab 06/25/23 Pantoprazole [Protonix] 40 mg PO DAILY #30 tab 08/22/23 Clindamycin [Cleocin] 450 mg PO Q6H 7 Days #63 capsule 08/25/23 Allergies Allergy/AdvReac Type Severity Reaction Status Date / Time No Known Allergies Allergy Verified 08/26/22 15:35 Review of Systems ROS Statement: Those systems with pertinent positive or pertinent negative responses have been documented in the HPI. ROS Other: All systems not noted in ROS Statement are negative. Past Medical History Past Medical History: COPD Additional Past Medical History / Comment(s): back pain History of Any Multi-Drug Resistant Organisms: None Reported Past Surgical History: No Surgical Hx Reported Additional Past Surgical History / Comment(s): METAL PLATE IN RIGHT EYE SOCKET Past Psychological History: No Psychological Hx Reported Smoking Status: Current every day smoker Past Alcohol Use History: Abuse, Heavy Past Drug Use History: Prescription Drug Abuse General Exam General appearance: anxious Head exam: Present: atraumatic, normocephalic, normal inspection Eye exam: Present: normal appearance, PERRL, EOMI. Absent: scleral icterus, conjunctival injection, periorbital swelling ENT exam: Present: normal exam, mucous membranes moist Neck exam: Present: normal inspection. Absent: tenderness, meningismus, lymphadenopathy Respiratory exam: Present: normal lung sounds bilaterally. Absent: respiratory distress, wheezes, rales, rhonchi, stridor Cardiovascular Exam: Present: regular rate, normal rhythm, normal heart sounds. Absent: systolic murmur, diastolic murmur, rubs, gallop, clicks GI/Abdominal exam: Present: soft, normal bowel sounds. Absent: distended, tenderness, guarding, rebound, rigid Extremities exam: Present: normal inspection, full ROM, normal capillary refill. Absent: tenderness, pedal edema, joint swelling, calf tenderness Back exam: Present: normal inspection Neurological exam: Present: alert, oriented X3, CN II-XII intact Psychiatric exam: Present: normal affect, normal mood Skin exam: Present: warm, dry, intact, normal color. Absent: rash Course Vital Signs 01/28/24 01/28/24 01/28/24 23:38 23:48 23:52 Temperature 98.4 F Pulse Rate 85 86 Respiratory 20 20 20 Rate Blood Pressure 159/85 O2 Sat by Pulse 100 100 Oximetry 01/29/24 01/29/24 01/29/24 00:34 00:44 00:48 Temperature Pulse Rate 84 88 98 Respiratory 16 Rate Blood Pressure O2 Sat by Pulse Oximetry 01/29/24 01/29/24 01:00 02:00 Temperature Pulse Rate 86 86 Respiratory 20 20 Rate Blood Pressure O2 Sat by Pulse 95 96 Oximetry - Reevaluation(s) Reevaluation #1: 01/28/24 23:48 Medical records reviewed Reevaluation #2: 01/29/24 01:50 2 symptoms are improving here in the ER Reevaluation #3: 01/29/24 01:50 Patient informed of results and questions answered Reevaluation #4: Was pt. sent in by a medical professional or institution (, HEIDY, RANGER AIDE, urgent care, hospital, or usp...) When possible be specific @ -no Did you speak to anyone other than the patient for history (EMS, parent, family, police, friend...)? What history was obtained from this source @ -no Did you review nursing and triage notes (agree or disagree)? Why? @ -agree Are old charts reviewed (outside hosp., previous admission, EMS record, old EKG, old radiological studies, urgent care reports/EKG's, usp records)? Report findings @ -yes Differential Diagnosis (chest pain, altered mental status, abdominal pain women, abdominal pain men, vaginal bleeding, weakness, fever, dyspnea, syncope, headache, dizziness, GI bleed, back pain, seizure, CVA, palpatations, mental health, musculoskeletal)? @ -prior EKG interpreted by me (3pts min.). @ -yes X-rays interpreted by me (1pt min.). @ -yes negative for acute disease CT interpreted by me (1pt min.). @ -no U/S interpreted by me (1pt. min.). @ -no What testing was considered but not performed or refused? (CT, X-rays, U/S, lab s)? Why? @ -none What meds were considered but not given or refused? Why? @ -none Did you discuss the management of the patient with other professionals (professionals i.e. , HEIDY, RANGER AIDE, lab, RT, psych nurse, social work administrator, licensed master social worker, teacher, equal employment opportunity officer, pillowcase cutter)? Give summary @ -no Was smoking cessation discussed for >3mins.? @ -no Was critical care preformed (if so, how long)? @ -no Were there social determinants of health that impacted care today? How? (Homelessness, low income, unemployed, alcoholism, drug addiction, transportation, low edu. Level, literacy, decrease access to med. care, longterm, rehab)? @ -none Was there de-escalation of care discussed even if they declined (Discuss DNR or withdrawal of care, Hospice)? DNR status @ -no What co-morbidities impacted this encounter? (DM, HTN, Smoking, COPD, CAD, Cancer, CVA, ARF, Chemo, Hep., AIDS, mental health diagnosis, sleep apnea, morbid obesity)? @ -none Was patient admitted / discharged? Hospital course, mention meds given and route, prescriptions, significant lab abnormalities, going to OR and other pertinent info. @ - 58 male with drug-induced anxiety attack complicated by history of COPD, patient symptoms are dramatically improved here in the ER he feels well and can be discharged home Discharge Undiagnosed new problem with uncertain prognosis? @ -no Drug Therapy requiring intensive monitoring for toxicity (Heparin, Nitro, Insulin, Cardizem)? @ -no Were any procedures done? @ -no Diagnosis/symptom? @ -Anxiety Acute, or Chronic, or Acute on Chronic? @ -Acute Uncomplicated (without systemic symptoms) or Complicated (systemic symptoms)? @ -Complicated Side effects of treatment? @ -no Exacerbation, Progression, or Severe Exacerbation? @ -exacerbation Poses a threat to life or bodily function? How? (Chest pain, [place], [place], pneumonia, PE, COPD, DKA, ARF, appy, cholecystitis, CVA, Diverticulitis, Homicidal, Suicidal, threat to staff... and all critical care pts) @ -yes Reevaluation #5: Differential Dyspnea: Coronary syndrome, arrhythmia, tamponade, asthma, COPD, pulmonary embolism, pneumonia, pneumothorax, pulmonary effusion, anaphylaxis, diabetic ketoacidosis, flailed chest, pulmonary contusion, diaphragmatic rupture, anemia, neuromuscular, this is not meant to be an all-inclusive list. Medical Decision Making - Medical Decision Making 58 male with drug-induced anxiety attack complicated by history of COPD, patient symptoms are dramatically improved here in the ER he feels well and can be discharged home - Lab Data Result diagrams: 01/29/24 00:01 Lab Results 01/29/24 01/29/24 Range/Units 00:01 00:01 WBC 7.9 (3.8-10.6) k/uL RBC 4.16 L (4.30-5.90) m/uL Hgb 14.7 (13.0-17.5) gm/dL Hct 43.1 (39.0-53.0) % MCV 103.7 H (80.0-100.0) fL MCH 35.3 H (25.0-35.0) pg MCHC 34.0 (31.0-37.0) g/dL RDW 12.3 (11.5-15.5) % Plt Count 262 (150-450) k/uL MPV 8.1 Neutrophils % 68 % Lymphocytes % 21 % Monocytes % 8 % Eosinophils % 1 % Basophils % 0 % Neutrophils # 5.4 (1.3-7.7) k/uL Lymphocytes # 1.6 (1.0-4.8) k/uL Monocytes # 0.7 (0-1.0) k/uL Eosinophils # 0.1 (0-0.7) k/uL Basophils # 0.0 (0-0.2) k/uL Macrocytosis Slight PT 10.3 (10.0-12.5) sec INR 0.9 (<1.2) APTT 21.6 L (22.0-30.0) sec - EKG Data -: EKG Interpreted by Me (EKG sinus 85 SC 162 QRS 100 QTc 415) Disposition Clinical Impression: Anxiety Disposition: HOME SELF-CARE Condition: Good Instructions (If sedation given, give patient instructions): Anxiety (ED) Is patient prescribed a controlled substance at d/c from ED?: No Referrals: None,Stated [Primary Care Provider] - 1-2 days Time of Disposition: 02:00
[2024-01-29] MEDS: LORazepam 2 MG/ML INJ IV STA (00:09)
[2024-01-29] MEDS: SODIUM CHLORIDE 0.9% 500 ML 500 ML IV STA (00:10)
[2024-01-29] MEDS: methylPREDNISolone SOD SUCCI 125 MG/2 ML VIAL IV STA (00:10)
[2024-01-29] MEDS: SODIUM CHLORIDE 0.9% 1,000 ML IV STA (00:10)
[2024-01-29] MEDS: MORPHINE SULFATE 4 MG/ML SYRINGE IVP STA (00:22)
[2024-01-29] MEDS: IPRATROPIUM-ALBUTEROL 3 ML NEB INHALATION STA (00:33)
[2024-01-29 01:13] LABS: Basophils % (A) 0 %; Eosinophils # (A) 0.1 k/uL (0-0.7); Eosinophils % (A) 1 %; HCT 43.1 % (39.0-53.0); HGB 14.7 gm/dL (13.0-17.5); Lymphocytes # (A) 1.6 k/uL (1.0-4.8); Lymphocytes % (A) 21 %; MCH 35.3 pg (25.0-35.0); MCV 103.7 fL (80.0-100.0); Macrocytosis Slight; Mean Platelet Volume 8.1; Monocytes # (A) 0.7 k/uL (0-1.0); Monocytes % (A) 8 %; Neutrophils # (A) 5.4 k/uL (1.3-7.7); Neutrophils % (A) 68 %; Platelet Count 262 k/uL (150-450); RBC 4.16 m/uL (4.30-5.90); RDW 12.3 % (11.5-15.5); WBC 7.9 k/uL (3.8-10.6)
[2024-01-29 01:43] VITALS: PULSE 86; RESP 20
[2024-01-29 01:47] LABS: INR 0.9 (<1.2); Partial Thromboplastin Time 21.6 sec (22.0-30.0); Prothrombin Time 10.3 sec (10.0-12.5)
--- NOTE | 2024-01-29 01:52 | XR ---
EXAM: XR Chest, 1 View CLINICAL HISTORY: sob TECHNIQUE: Frontal view of the chest. COMPARISON: Chest 2 views dated 06/25/2023 FINDINGS: Lungs: No focal airspace consolidation identified. The pulmonary vasculature demonstrates no significant radiographic abnormality. Pleural space: Unremarkable. No pneumothorax. No large pleural effusion. Heart: Unremarkable. No cardiomegaly. Mediastinum: The mediastinal contours are stable and unremarkable. The trachea is midline. Bones/joints: Unremarkable. No acute fracture. IMPRESSION: No focal consolidation or acute cardiopulmonary process identified.
[2024-01-29] MEDS: LORazepam 1 MG TAB PO STA (01:59)
== END 2024-01-29 02:24 | disposition home or self-care (01) ==
LOC: EC 23:34
DX: F41.9 Anxiety disorder, unspecified (principal); F17.200 Nicotine dependence, unspecified, uncomplicated
CPT/HCPCS: 36415; 94640; 93005; 85025; 85610; 85730; 71045; 99285; 96374; 96375 ×2; 96361; J2060; J2270; J2919

== ENCOUNTER 2024-02-13 15:32 | Emergency (ER) | payer MEDICARE ==
[2024-02-13 15:39] VITALS: RESP 18; TEMP 97.8
--- NOTE | 2024-02-13 16:54 | ED ---
Lower Extremity Injury HPI - General Chief Complaint: Extremity Injury, Lower Stated Complaint: R foot laceration Time Seen by Provider: 02/13/24 16:51 Source: patient, RN notes reviewed Mode of arrival: ambulatory Limitations: no limitations - History of Present Illness Initial Comments: 58-year-old male presenting with right toe laceration 1 hour ago. States he was in the kitchen, and accidentally knocked a knife from the counter, and it fell point down onto his right toe. Denies blood thinners. Denies other injuries. Able to ambulate with no difficulties. Last tetanus unknown. - Related Data Previous Rx's Medication Instructions Recorded LORazepam [Ativan] 1 mg PO TID PRN #8 tab 06/24/16 Doxycycline Hyclate 100 mg PO BID 7 Days #14 tab 08/26/22 Pseudoephedrine 12Hr [Sudafed 12 120 mg PO Q12HR PRN #10 tab 08/26/22 Hour] Albuterol Inhaler [Ventolin Hfa 1 puff INHALATION QID #8 gm 11/06/22 Inhaler] Azithromycin [Zithromax] 250 mg PO DAILY 4 Days #4 tab 11/06/22 Lidocaine 5% Patch [Lidoderm 5% 14 patch TOPICAL DAILY PRN #14 11/06/22 Patch] patch predniSONE [Deltasone] 40 mg PO DAILY 5 Days #10 tab 11/06/22 Albuterol Inhaler [Ventolin Hfa 1 - 2 puff INHALATION Q6HR PRN #2 06/25/23 Inhaler] each Azithromycin [Zithromax Tri-Domenic (3 500 mg PO DAILY 3 Days #3 tab 06/25/23 tabs)] predniSONE [Deltasone] 40 mg PO DAILY #8 tab 06/25/23 Pantoprazole [Protonix] 40 mg PO DAILY #30 tab 08/22/23 Clindamycin [Cleocin] 450 mg PO Q6H 7 Days #63 capsule 08/25/23 Allergies Allergy/AdvReac Type Severity Reaction Status Date / Time No Known Allergies Allergy Verified 02/13/24 15:39 Review of Systems ROS Statement: Those systems with pertinent positive or pertinent negative responses have been documented in the HPI. ROS Other: All systems not noted in ROS Statement are negative. Past Medical History Past Medical History: COPD Additional Past Medical History / Comment(s): back pain History of Any Multi-Drug Resistant Organisms: None Reported Past Surgical History: No Surgical Hx Reported Additional Past Surgical History / Comment(s): METAL PLATE IN RIGHT EYE SOCKET Past Psychological History: No Psychological Hx Reported Smoking Status: Current every day smoker Past Alcohol Use History: Abuse, Heavy Past Drug Use History: Prescription Drug Abuse General Exam Limitations: no limitations General appearance: alert, in no apparent distress Right Ankle exam: Present: normal inspection, full ROM. Absent: tenderness, swelling Foot/Toe exam: Present: normal inspection (2 cm horizontal laceration present across first metacarpophalangeal joint, no active bleeding. No tenderness to palpation.), full ROM, laceration. Absent: tenderness, swelling Neurovascular tendon exam: Present: no vascular compromise. Absent: pulse deficit, abnormal cap refill, sensory deficit Neurological exam: Present: alert, oriented X3 Psychiatric exam: Present: normal affect, normal mood Skin exam: Present: warm, dry, intact, normal color. Absent: rash Course Vital Signs 02/13/24 15:36 Temperature 97.8 F Pulse Rate 87 Respiratory 18 Rate Blood Pressure 122/79 O2 Sat by Pulse 95 Oximetry Procedures - Laceration Laceration #1 Consent Obtained: verbal consent Indication: laceration Site: foot Size (cm): 2 Description: linear Depth: simple, single layer Anesthetic Used: lidocaine 1%, without epi Anesthesia Technique: local infiltration Amount (mls): 2 Pre-repair: wound explored, irrigated extensively, deep structures intact Type of Sutures: nylon Size of Sutures: 4-0 Number of Sutures: 3 Technique: simple, interrupted Patient Tolerated Procedure: well, no complications Additional Comments: Neurovascular intact status post procedure Medical Decision Making - Medical Decision Making Was pt. sent in by a medical professional or institution (, PA, EVIDENCE SPECIALIST, urgent care, hospital, or assisted...) When possible be specific @ -No Did you speak to anyone other than the patient for history (EMS, parent, family, police, friend...)? What history was obtained from this source @ -No Did you review nursing and triage notes (agree or disagree)? Why? @ -I reviewed and agree with nursing and triage notes Were old charts reviewed (outside hosp., previous admission, EMS record, old EKG, old radiological studies, urgent care reports/EKG's, assisted records)? Report findings @ -No old charts were reviewed Differential Diagnosis (chest pain, altered mental status, abdominal pain women, abdominal pain men, vaginal bleeding, weakness, fever, dyspnea, syncope, headache, dizziness, GI bleed, back pain, seizure, CVA, palpatations, mental health, musculoskeletal)? @ -Differential Musculoskeletal Muscular strain, contusion, ligament sprain, fracture, arthritis, septic arthritis, bursitis, cellulitis, muscle spasm, nerve compression, DVT, arterial occlusion, herpes zoster, electrolyte abnormality, tumor.... This is not meant to be in all inclusive list EKG interpreted by me (3pts min.). @ -None X-rays interpreted by me (1pt min.). @ -None done CT interpreted by me (1pt min.). @ -None done U/S interpreted by me (1pt. min.). @ -None done What testing was considered but not performed or refused? (CT, X-rays, U/S, labs)? Why? @ -Patient declines x-ray of right foot as he does not believe he has a fracture is able to ambulate What meds were considered but not given or refused? Why? @ -None Did you discuss the management of the patient with other professionals (professionals i.e. , PA, EVIDENCE SPECIALIST, lab, RT, psych nurse, hospice social worker, senior water/wastewater engineer, teacher, aircraft electronics technical officer, medical case manager)? Give summary @ -No Was smoking cessation discussed for >3mins.? @ -No Was critical care preformed (if so, how long)? @ -No Were there social determinants of health that impacted care today? How? (Homelessness, low income, unemployed, alcoholism, drug addiction, transportation, low edu. Level, literacy, decrease access to med. care, correction, rehab)? @ -No Was there de-escalation of care discussed even if they declined (Discuss DNR or withdrawal of care, Hospice)? DNR status @ -No What co-morbidities impacted this encounter? (DM, HTN, Smoking, COPD, CAD, Cancer, CVA, ARF, Chemo, Hep., AIDS, mental health diagnosis, sleep apnea, morbid obesity)? @ -None Was patient admitted / discharged? Hospital course, mention meds given and route, prescriptions, significant lab abnormalities, going to OR and other pertinent info. @ -Patient was discharged. This is a 58-year-old male presenting with laceration on right toe prior to arrival. Neurovascularly intact. There is a linear 2 cm laceration present on right great toe, 3 sutures placed with no complications. Tetanus was updated. Supportive care discussed. Advised to follow-up in 7 days for suture removal. Return precautions discussed and patient is agreeable to plan. Case was discussed with my ED to Dr. Hyde. Patient discharged stable condition. Undiagnosed new problem with uncertain prognosis? @ -No Drug Therapy requiring intensive monitoring for toxicity (Heparin, Nitro, Insulin, Cardizem)? @ -No Were any procedures done? @ -No Diagnosis/symptom? @ -Right right toe laceration Acute, or Chronic, or Acute on Chronic? @ -Acute Uncomplicated (without systemic symptoms) or Complicated (systemic symptoms)? @ -Uncomplicated Side effects of treatment? @ -No Exacerbation, Progression, or Severe Exacerbation? @ -No Poses a threat to life or bodily function? How? (Chest pain, [place], [place], pneumonia, PE, COPD, DKA, ARF, appy, cholecystitis, CVA, Diverticulitis, Homicidal, Suicidal, threat to staff... and all critical care pts) @ -No Disposition Clinical Impression: Laceration of toe Disposition: HOME SELF-CARE Condition: Stable Instructions (If sedation given, give patient instructions): Laceration (ED) Additional Instructions: Follow-up in 7 days for suture removal. Please return to the Emergency Department if symptoms worsen or any other concerns. Is patient prescribed a controlled substance at d/c from ED?: No Referrals: None,Stated [Primary Care Provider] - 1-2 days Time of Disposition: 18:33
[2024-02-13] MEDS: LIDOCAINE 1% INJ 10MG/ML (20 ML MDV) SQ ONE (17:10)
[2024-02-13] MEDS: KETOROLAC 15 MG/ML 1 ML VIAL IM STA (17:10)
[2024-02-13] MEDS: DIPH,PERTUS(ACELL)TETVAC-LF 0.5 ML VIAL IM ONE (17:11)
[2024-02-13] MEDS: ACET/COD 300 MG/30 MG STARTER PACK 6 TAB BTL PO STA (18:49)
[2024-02-13 18:54] VITALS: BP 142/75; PULSE 68
== END 2024-02-13 18:57 | disposition home or self-care (01) ==
LOC: EC 15:32
CPT/HCPCS: 12001; 90471; 90715; 96372; 99283

== ENCOUNTER 2024-02-24 18:29 | Emergency (ER) | payer MEDICARE ==
--- NOTE | 2024-02-24 18:58 | ED ---
General Adult HPI - General Chief complaint: Shortness of Breath Stated complaint: SOB Time Seen by Provider: 02/24/24 18:34 Source: patient Mode of arrival: ambulatory Limitations: no limitations - History of Present Illness Initial comments: Dictation was produced using [employer] dictation software. please excuse any grammatical, word or spelling errors. 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 States he is feeling anxious. He has been trying to quit at home by tapering his alcohol intake. Patient states that since the last 24 hours she has been feeling short of breath anxious and j ittery. States that he has been hospitalized for alcohol withdrawal in the past after he started to experience some symptoms of hallucinations. Patient denies any chest pain. Does have a history of COPD not sure if he just needs a breathing treatment. States that he does not want to be admitted because his girlfriend has to go to work later tonight The ROS documented in this emergency department record has been reviewed and confirmed by me. Those systems with pertinent positive or negative responses have been documented in the HPI. All other systems are other negative and/or noncontributory. - Related Data Previous Rx's Medication Instructions Recorded LORazepam [Ativan] 1 mg PO TID PRN #8 tab 06/24/16 Doxycycline Hyclate 100 mg PO BID 7 Days #14 tab 08/26/22 Pseudoephedrine 12Hr [Sudafed 12 120 mg PO Q12HR PRN #10 tab 08/26/22 Hour] Albuterol Inhaler [Ventolin Hfa 1 puff INHALATION QID #8 gm 11/06/22 Inhaler] Azithromycin [Zithromax] 250 mg PO DAILY 4 Days #4 tab 11/06/22 Lidocaine 5% Patch [Lidoderm 5% 14 patch TOPICAL DAILY PRN #14 11/06/22 Patch] patch predniSONE [Deltasone] 40 mg PO DAILY 5 Days #10 tab 11/06/22 Albuterol Inhaler [Ventolin Hfa 1 - 2 puff INHALATION Q6HR PRN #2 06/25/23 Inhaler] each Azithromycin [Zithromax Tri-Domenic (3 500 mg PO DAILY 3 Days #3 tab 01/22/24 tabs)] predniSONE [Deltasone] 40 mg PO DAILY #8 tab 06/25/23 Pantoprazole [Protonix] 40 mg PO DAILY #30 tab 08/22/23 Clindamycin [Cleocin] 450 mg PO Q6H 7 Days #63 capsule 08/25/23 chlordiazePOXIDE HCl [Librium] 25 mg PO TID 4 Days #15 capsule 02/24/24 Allergies Allergy/AdvReac Type Severity Reaction Status Date / Time No Known Allergies Allergy Verified 02/24/24 18:33 Review of Systems ROS Statement: Those systems with pertinent positive or pertinent negative responses have been documented in the HPI. ROS Other: All systems not noted in ROS Statement are negative. Past Medical History Past Medical History: COPD Additional Past Medical History / Comment(s): back pain History of Any Multi-Drug Resistant Organisms: None Reported Past Surgical History: No Surgical Hx Reported Additional Past Surgical History / Comment(s): METAL PLATE IN RIGHT EYE SOCKET Past Psychological History: No Psychological Hx Reported Smoking Status: Current every day smoker Past Alcohol Use History: Abuse, Heavy Past Drug Use History: Prescription Drug Abuse General Exam - General Exam Comments Initial Comments: PHYSICAL EXAM: General Impression: Alert and oriented x3, less, anxious HEENT: Normocephalic atraumatic, extra-ocular movements intact, pupils equal and reactive to light bilaterally, mucous membranes moist. Cardiovascular: Mildly tachycardic Chest: Able to complete full sentences, no retractions, no tachypnea, clear to auscultation bilaterally Abdomen: abdomen soft, non-tender, non-distended, no organomegaly Musculoskeletal: Pulses present and equal in all extremities, no peripheral edema Motor: no focal deficits noted Neurological: CN II-XII grossly intact, no focal motor or sensory deficits noted Skin: Intact with no visualized rashes Psych: Normal affect and mood Limitations: no limitations Course Vital Signs 02/24/24 02/24/24 18:30 19:30 Temperature 98 F Pulse Rate 110 H 86 Respiratory 20 18 Rate Blood Pressure 164/93 127/73 O2 Sat by Pulse 94 L 98 Oximetry EKG Findings - EKG Comments: EKG Findings:: My EKG interpretation: Ventricular rate 91, sinus rhythm,. 162, QRS 100, QTc 384. No DE prolongation, no QTC prolongation, no ST or T-wave changes noted. Overall, this EKG is unremarkable Medical Decision Making - Medical Decision Making Was pt. sent in by a medical professional or institution (, PA, SUPERINTENDENT MEASUREMENT, urgent care, hospital, or usp...) When possible be specific @ -No Did you speak to anyone other than the patient for history (EMS, parent, family, police, friend...)? What history was obtained from this source @ -No Did you review nursing and triage notes (agree or disagree)? Why? @ -I reviewed and agree with nursing and triage notes Were old charts reviewed (outside hosp., previous admission, EMS record, old EKG, old radiological studies, urgent care reports/EKG's, usp records)? Report findings @ -No old charts were reviewed Differential Diagnosis (chest pain, altered mental status, abdominal pain women, abdominal pain men, vaginal bleeding, musculoskeletal, weakness, fever, dyspnea, syncope, headache, dizziness, GI bleed, back pain, seizure, CVA, palpatations, mental health)? @ -Differential Dyspnea: Coronary syndrome, arrhythmia, tamponade, asthma, COPD, pulmonary embolism, pneumonia, pneumothorax, pulmonary effusion, anaphylaxis, diabetic ketoacidosis, flailed chest, pulmonary contusion, diaphragmatic rupture, anemia, neuromuscular, this is not meant to be an all-inclusive list. EKG interpreted by me (3pts min.). @ -None done X-rays interpreted by me (1pt min.). @ -X-rays unremarkable CT interpreted by me (1pt min.). @ -None done U/S interpreted by me (1pt. min.). @ -None done What testing was considered but not performed or refused? (CT, X-rays, U/S, labs)? Why? @ -None What meds were considered but not given or refused? Why? @ -None Was smoking cessation discussed for >3mins.? @ -No Were there social determinants of health that impacted care today? How? (Ho melessness, low income, unemployed, alcoholism, drug addiction, transportation, low edu. Level, literacy, decrease access to med. care, correction, rehab)? @ -Alcohol dependence Was there de-escalation of care discussed even if they declined (Discuss DNR or withdrawal of care, Hospice)? DNR status @ -No What co-morbidities impacted this encounter? (DM, HTN, Smoking, COPD, CAD, Cancer, CVA, ARF, Chemo, Hep., AIDS, mental health diagnosis, sleep apnea, morbid obesity)? @ -None Was patient admitted / discharged? Hospital course, mention meds given and route, prescriptions, significant lab abnormalities, going to OR and other pertinent info. @ -58-year-old male with chief complaint of. States that he has had hallucinations when trying to quit alcohol in the past. States that he is ad dicted to alcohol and also opiates. Vital signs upon arrival shows heart rate of 110 rest of vital signs within acceptable limits. Concern for alcohol withdrawal. Laboratory evaluation is within acceptable limits. Serum alcohol is negative. Recommended to patient that he be admitted to the hospital for patient EtOH withdrawal symptoms however he refused states that he has to be home because his girlfriend has to go to work. Patient feels much better after having had Ativan. Patient told that his clinical presentation is likely to get worse and that he should return to the emergency department. He agrees. He understands return precautions. Patient discharged Did you discuss the management of the patient with other professionals (professionals i.e. , PA, SUPERINTENDENT MEASUREMENT, lab, RT, psych nurse, psychosocial rehabilitation counselor, it network engineer, teacher, head correction officer, case finisher)? Give summary @ -No Was critical care preformed (if so, how long)? @ -No Undiagnosed new problem with uncertain prognosis? @ -No Drug Therapy requiring intensive monitoring for toxicity (Heparin, Nitro, Insulin, Cardizem)? @ -No Were any procedures done? @ -No Diagnosis/symptom? Acute, or Chronic, or Acute on Chronic? Uncomplicated (without systemic symptoms) or Complicated (systemic symptoms)? @ -Alcohol withdrawal Side effects of treatment? @ -No Exacerbation, Progression, or Severe Exacerbation? @ -No Poses a threat to life or bodily function? How? (Chest pain, USA, MS, pneumonia, PE, COPD, DKA, ARF, appy, cholecystitis, CVA, Diverticulitis, Homicidal, Suicidal, threat to staff... and all critical care pts) @ -yes - Lab Data Result diagrams: 02/24/24 18:50 02/24/24 18:50 Lab Results 02/24/24 02/24/24 02/24/24 Range/Units 18:50 18:50 18:50 WBC 11.1 H (3.8-10.6) k/uL RBC 3.75 L (4.30-5.90) m/uL Hgb 13.3 (13.0-17.5) gm/dL Hct 39.5 (39.0-53.0) % MCV 105.5 H (80.0-100.0) fL MCH 35.5 H (25.0-35.0) pg MCHC 33.7 (31.0-37.0) g/dL RDW 13.6 (11.5-15.5) % Plt Count 274 (150-450) k/uL MPV 7.8 Neutrophils % 77 % Lymphocytes % 13 % Monocytes % 8 % Eosinophils % 1 % Basophils % 0 % Neutrophils # 8.5 H (1.3-7.7) k/uL Lymphocytes # 1.4 (1.0-4.8) k/uL Monocytes # 0.9 (0-1.0) k/uL Eosinophils # 0.1 (0-0.7) k/uL Basophils # 0.0 (0-0.2) k/uL Macrocytosis Moderate Sodium 133 L (137-145) mmol/L Potassium 4.2 (3.5-5.1) mmol/L Chloride 101 (98-107) mmol/L Carbon Dioxide 25 (22-30) mmol/L Anion Gap 7 mmol/L BUN 8 L (9-20) mg/dL Creatinine 0.59 L (0.66-1.25) mg/dL Est GFR (CKD-EPI)AfAm >90 (>60 ml/min/1.73 sqM) Est GFR (CKD-EPI)NonAf >90 (>60 ml/min/1.73 sqM) Glucose 172 H (74-99) mg/dL Plasma Lactic Acid Jose 1.2 (0.7-2.0) mmol/L Calcium 9.8 (8.4-10.2) mg/dL Magnesium 2.0 (1.6-2.3) mg/dL Total Bilirubin 0.4 (0.2-1.3) mg/dL AST 42 (17-59) U/L ALT 24 (4-49) U/L Alkaline Phosphatase 71 (38-126) U/L Total Protein 6.7 (6.3-8.2) g/dL Albumin 4.3 (3.5-5.0) g/dL Serum Alcohol <10 mg/dL Disposition Clinical Impression: Alcohol withdrawal Disposition: HOME SELF-CARE Condition: Fair Instructions (If sedation given, give patient instructions): Alcohol Withdrawal (ED) Prescriptions: chlordiazePOXIDE HCl [Librium] 25 mg PO TID 4 Days #15 capsule Is patient prescribed a controlled substance at d/c from ED?: Yes If prescribed controlled substance>3 days was MAPS reviewed?: Prescribed <3 Days Referrals: None,Stated [Primary Care Provider] - 1-2 days Time of Disposition: 20:37
[2024-02-24] MEDS: SODIUM CHLORIDE 0.9% 1,000 ML IV STA (19:04)
[2024-02-24] MEDS: LORazepam 2 MG/ML INJ IV STA (19:05)
[2024-02-24 19:32] LABS: Basophils % (A) 0 %; Eosinophils # (A) 0.1 k/uL (0-0.7); Eosinophils % (A) 1 %; HCT 39.5 % (39.0-53.0); HGB 13.3 gm/dL (13.0-17.5); Lymphocytes # (A) 1.4 k/uL (1.0-4.8); Lymphocytes % (A) 13 %; MCH 35.5 pg (25.0-35.0); MCHC 33.7 g/dL (31.0-37.0); MCV 105.5 fL (80.0-100.0); Macrocytosis Moderate; Mean Platelet Volume 7.8; Monocytes # (A) 0.9 k/uL (0-1.0); Monocytes % (A) 8 %; Neutrophils # (A) 8.5 k/uL (1.3-7.7); Neutrophils % (A) 77 %; Platelet Count 274 k/uL (150-450); RBC 3.75 m/uL (4.30-5.90); RDW 13.6 % (11.5-15.5); WBC 11.1 k/uL (3.8-10.6)
[2024-02-24 19:48] LABS: ALT 24 U/L (4-49); AST 42 U/L (17-59); African American GFR (CKD) >90 (>60 ml/min/1.73 sqM); Albumin 4.3 g/dL (3.5-5.0); Alcohol <10 mg/dL; Alkaline Phosphatase 71 U/L (38-126); Anion Gap 7 mmol/L; Blood Urea Nitrogen 8 mg/dL (9-20); Calcium 9.8 mg/dL (8.4-10.2); Carbon Dioxide 25 mmol/L (22-30); Chloride 101 mmol/L (98-107); Glucose 172 mg/dL (74-99); Non-African American GFR(CKD) >90 (>60 ml/min/1.73 sqM); Potassium 4.2 mmol/L (3.5-5.1); Sodium 133 mmol/L (137-145); Total Bilirubin 0.4 mg/dL (0.2-1.3); Total Protein 6.7 g/dL (6.3-8.2)
[2024-02-24 20:01] VITALS: RESP 18
--- NOTE | 2024-02-24 20:25 | XR ---
EXAMINATION TYPE: XR chest 1V portable DATE OF EXAM: 02/24/2024 COMPARISON: 01/29/2024 INDICATION: Dyspnea TECHNIQUE: Single frontal view of the chest is obtained. FINDINGS: The heart size is normal. The pulmonary vasculature is normal. The lungs are clear. IMPRESSION: 1. No acute pulmonary process. [facility], Workstation: [facility], 02/24/2024 8:22 PM
[2024-02-24 20:58] VITALS: BP 122/84; PULSE 82; TEMP 98.2
== END 2024-02-24 20:59 | disposition home or self-care (01) ==
LOC: EC 18:29
CPT/HCPCS: 36415; 71045; 80053; 80320; 83605; 83735; 85025; 93005; 99285

== ENCOUNTER 2024-04-20 09:32 | Emergency (ER) | payer MEDICARE ==
[2024-04-20 09:39] VITALS: TEMP 97.9
[2024-04-20] MEDS ORDERED: LORazepam 2 MG/ML INJ IV PRN ×3 (09:39)
[2024-04-20 10:00] LABS: Basophils % (A) 0 %; Eosinophils # (A) 0.3 k/uL (0-0.7); Eosinophils % (A) 3 %; HCT 44.2 % (39.0-53.0); HGB 14.5 gm/dL (13.0-17.5); Lymphocytes # (A) 1.1 k/uL (1.0-4.8); Lymphocytes % (A) 11 %; MCH 34.5 pg (25.0-35.0); MCHC 32.8 g/dL (31.0-37.0); MCV 105.2 fL (80.0-100.0); Macrocytosis Slight; Mean Platelet Volume 7.4; Monocytes # (A) 0.8 k/uL (0-1.0); Monocytes % (A) 8 %; Neutrophils # (A) 7.7 k/uL (1.3-7.7); Neutrophils % (A) 77 %; Platelet Count 250 k/uL (150-450); WBC 10.1 k/uL (3.8-10.6)
--- NOTE | 2024-04-20 10:08 | ED ---
Alcohol HPI - General Chief Complaint: Anxiety Stated Complaint: ETOH/vomitting/withdrawl Time Seen by Provider: 04/20/24 09:34 Source: patient, EMS, RN notes reviewed Mode of arrival: EMS Limitations: no limitations - History of Present Illness Initial Comments: This is a 58-year-old male who presents to the emergency department for alcoholism and anxiety. Patient reports multiple recent life stressors. His Social Security income was just decreased and his rent then increased. Patient was subsequently given an eviction notice. He also just broke up with his girlfriend. States that he is compensating by drinking alcohol. Currently having 12-15 beers a day. He last consumed a large amount last night at some point and had a couple of sips this morning. Denies a history of withdrawal seizures. States that he feels very anxious and short of breath. Attributes part of the shortness of breath to COPD. Denies any suicidal or homicidal idea tions. MD Complaint: alcohol intoxication - Related Data Previous Rx's Medication Instructions Recorded LORazepam [Ativan] 1 mg PO TID PRN #8 tab 06/24/16 Doxycycline Hyclate 100 mg PO BID 7 Days #14 tab 08/26/22 Pseudoephedrine 12Hr [Sudafed 12 120 mg PO Q12HR PRN #10 tab 08/26/22 Hour] Albuterol Inhaler [Ventolin Hfa 1 puff INHALATION QID #8 gm 11/06/22 Inhaler] Azithromycin [Zithromax] 250 mg PO DAILY 4 Days #4 tab 11/06/22 Lidocaine 5% Patch [Lidoderm 5% 14 patch TOPICAL DAILY PRN #14 11/06/22 Patch] patch predniSONE [Deltasone] 40 mg PO DAILY 5 Days #10 tab 11/06/22 Albuterol Inhaler [Ventolin Hfa 1 - 2 puff INHALATION Q6HR PRN #2 06/25/23 Inhaler] each Azithromycin [Zithromax Tri-Domenic (3 500 mg PO DAILY 3 Days #3 tab 06/25/23 tabs)] predniSONE [Deltasone] 40 mg PO DAILY #8 tab 06/25/23 Pantoprazole [Protonix] 40 mg PO DAILY #30 tab 08/22/23 Clindamycin [Cleocin] 450 mg PO Q6H 7 Days #63 capsule 08/25/23 chlordiazePOXIDE HCl [Librium] 25 mg PO TID 4 Days #15 capsule 02/24/24 Allergies Allergy/AdvReac Type Severity Reaction Status Date / Time No Known Allergies Allergy Verified 04/20/24 09:39 Review of Systems ROS Statement: Those systems with pertinent positive or pertinent negative responses have been documented in the HPI. ROS Other: All systems not noted in ROS Statement are negative. Past Medical History Past Medical History: COPD Additional Past Medical History / Comment(s): back pain History of Any Multi-Drug Resistant Organisms: None Reported Past Surgical History: No Surgical Hx Reported Additional Past Surgical History / Comment(s): METAL PLATE IN RIGHT EYE SOCKET Past Psychological History: No Psychological Hx Reported Smoking Status: Current every day smoker Past Alcohol Use History: Abuse, Heavy Past Drug Use History: Prescription Drug Abuse General Exam Limitations: no limitations General appearance: alert, anxious Head exam: Present: atraumatic, normocephalic, normal inspection Respiratory exam: Present: wheezes, decreased breath sounds, prolonged expiratory Cardiovascular Exam: Present: regular rate, normal rhythm, normal heart sounds. Absent: systolic murmur, diastolic murmur, rubs, gallop, clicks Neurological exam: Present: alert, oriented X3, CN II-XII intact Psychiatric exam: Present: normal affect, normal mood Skin exam: Present: warm, dry, intact, normal color. Absent: rash Course Vital Signs 04/20/24 04/20/24 04/20/24 09:34 10:16 10:24 Temperature 97.9 F Pulse Rate 105 H 81 75 Respiratory 20 18 Rate Blood Pressure 144/97 131/90 O2 Sat by Pulse 93 L 94 L Oximetry 04/20/24 04/20/24 04/20/24 10:32 11:57 12:51 Temperature 97.9 F Pulse Rate 86 77 77 Respiratory 16 18 Rate Blood Pressure 119/78 103/73 O2 Sat by Pulse 94 L 94 L Oximetry Medical Decision Making - Medical Decision Making This is a 58 year old male who presents to the emergency department for alcoholism and anxiety. Was pt. sent in by a medical professional or institution? @ -No Did you speak to anyone other than the patient for history? @ -No Did you review nursing and triage notes? @ -Yes, and I agree, it is accurate with regards to the patient's symptoms. Were old charts reviewed? @ -No Differential Diagnosis? @ -Sympathomimetic syndrome, anti-muscarinic syndrome, serotonin syndrome, neuroleptic malignant syndrome, thyrotoxicosis, encephalitis, acute psychosis, hypoglycemia, trauma, sepsis. This is not meant to be an all-inclusive list. EKG interpreted by me (3pts min.)? @ -EKG interpreted by me demonstrating the following: Sinus rhythm. Ventricular rate 86 bpm, ME interval 152 ms, QRS duration 95 ms, QTc 405 ms. X-rays interpreted by me (1pt min.)? @ -Chest x-ray obtained, my interpretation identifies no localized consol idations or infiltrates. CT interpreted by me (1pt min.)? @ -Not obtained U/S interpreted by me (1pt. min.)? @ -Not obtained What testing was considered but not performed? (CT, X-rays, U/S, labs)? Why? @ -None What meds were considered but not given? Why? @ -None Did you discuss the management of the patient with other professionals? @ -No Did you reconcile home meds? @ -No Was smoking cessation discussed for >3mins.? @ -I discussed smoking cessation for greater than 3 minutes. The risk of smoking were discussed with the patient including but not limited to risks of cancer, stroke, coronary artery disease and COPD. Also discussed with patient were multiple methods of quitting smoking. Lastly we discussed the financial cost of smoking. Was critical care preformed (if so, how long)? @ -No Were there social determinants of health that impacted care today? How? (Homel essness, low income, unemployed, alcoholism, drug addiction, transportation, low edu. Level, literacy, decrease access to med. care, detention, rehab)? @ -Alcoholism, leading to the visit today Was there de-escalation of care discussed even if they declined? (Discuss DNR or withdrawal of care, Hospice)? @ -No What co-morbidities impacted this encounter? (DM, HTN, Smoking, COPD, CAD, Cancer, CVA, Hep., AIDS, mental health diagnosis, sleep apnea, morbid obesity)? @ -Alcoholism, drug addiction, smoking Was patient admitted / discharged? @ -Discharged. Lab work unremarkable. Alcohol level negative. Urinalysis negative for signs of infection. UDS positive for opiates and benzodiazepines. Chest x-ray reveals no acute process. DuoNeb breathing treatment administered for the wheezing from the COPD, with improvement in symptoms. Ativan and IV fluids administered as well. He did have improvement in symptoms with the Ativan. I offered admission for alcohol withdrawals. However, he states that he does not struggle with these and would much rather go home. States that he really just wanted help with his anxiety. He was sent home with an Ativan tablet and counseled on excessive alcohol consumption and drug use. Patient discharged home in stable condition. Case discussed with ED attending Dr. Hyde. Return precautions reviewed in depth, the patient is instructed to return to the emergency department with any new, worsening, or concerning symptoms. Patient verbalized understanding. Undiagnosed new problem with uncertain prognosis? @ -None Drug Therapy requiring intensive monitoring for toxicity (Heparin, Nitro, Insulin, Cardizem)? @ -None Were any procedures done? @ -None Diagnosis/symptom? @ -Alcohol abuse Acute, or Chronic, or Acute on Chronic? @ -Chronic Uncomplicated (without systemic symptoms) or Complicated (systemic symptoms)? @ -Complicated Side effects of treatment? @ -None Exacerbation, Progression, or Severe Exacerbation] @ -Progression Poses a threat to life or bodily function? @ -Yes, this is impacting his ability to function in terms of anxiety. - Lab Data Result diagrams: 04/20/24 09:49 04/20/24 09:49 Lab Results 04/20/24 04/20/24 04/20/24 Range/Units 09:49 09:49 09:49 WBC 10.1 (3.8-10.6) k/uL RBC 4.20 L (4.30-5.90) m/uL Hgb 14.5 (13.0-17.5) gm/dL Hct 44.2 (39.0-53.0) % MCV 105.2 H (80.0-100.0) fL MCH 34.5 (25.0-35.0) pg MCHC 32.8 (31.0-37.0) g/dL RDW 12.0 (11.5-15.5) % Plt Count 250 (150-450) k/uL MPV 7.4 Neutrophils % 77 % Lymphocytes % 11 % Monocytes % 8 % Eosinophils % 3 % Basophils % 0 % Neutrophils # 7.7 (1.3-7.7) k/uL Lymphocytes # 1.1 (1.0-4.8) k/uL Monocytes # 0.8 (0-1.0) k/uL Eosinophils # 0.3 (0-0.7) k/uL Basophils # 0.0 (0-0.2) k/uL Macrocytosis Slight PT 10.1 (10.0-12.5) sec INR 0.9 (<1.2) Sodium 138 (137-145) mmol/L Potassium 4.1 (3.5-5.1) mmol/L Chloride 101 (98-107) mmol/L Carbon Dioxide 29 (22-30) mmol/L Anion Gap 8 mmol/L BUN 9 (9-20) mg/dL Creatinine 0.53 L (0.66-1.25) mg/dL Est GFR (CKD-EPI)AfAm >90 (>60 ml/min/1.73 sqM) Est GFR (CKD-EPI)NonAf >90 (>60 ml/min/1.73 sqM) Glucose 115 H (74-99) mg/dL Calcium 9.8 (8.4-10.2) mg/dL Magnesium (1.6-2.3) mg/dL Total Bilirubin 0.5 (0.2-1.3) mg/dL AST 56 (17-59) U/L ALT 27 (4-49) U/L Alkaline Phosphatase 78 (38-126) U/L Troponin I (0.000-0.034) ng/mL Total Protein 6.8 (6.3-8.2) g/dL Albumin 4.3 (3.5-5.0) g/dL Lipase 104 (23-300) U/L Urine Color Urine Appearance (Clear) Urine pH (5.0-8.0) Ur Specific Pear[place] (1.001-1.035) Urine Protein (Negative) Urine Glucose (UA) (Negative) Urine Ketones (Negative) Urine Blood (Negative) Urine Nitrite (Negative) Urine Bilirubin (Negative) Urine Urobilinogen (<2.0) mg/dL Ur Leukocyte Esterase (Negative) Urine Opiates Screen (NotDetected) Ur Oxycodone Screen (NotDetected) Urine Methadone Screen (NotDetected) Ur Barbiturates Screen (NotDetected) U Tricyclic Antidepress (NotDetected) Ur Phencyclidine Scrn (NotDetected) Ur Amphetamines Screen (NotDetected) U Methamphetamines Scrn (NotDetected) U Benzodiazepines Scrn (NotDetected) Urine Cocaine Screen (NotDetected) U Marijuana (THC) Screen (NotDetected) Serum Alcohol <10 mg/dL 04/20/24 04/20/24 04/20/24 Range/Units 09:49 09:49 10:57 WBC (3.8-10.6) k/uL RBC (4.30-5.90) m/uL Hgb (13.0-17.5) gm/dL Hct (39.0-53.0) % MCV (80.0-100.0) fL MCH (25.0-35.0) pg MCHC (31.0-37.0) g/dL RDW (11.5-15.5) % Plt Count (150-450) k/uL MPV Neutrophils % % Lymphocytes % % Monocytes % % Eosinophils % % Basophils % % Neutrophils # (1.3-7.7) k/uL Lymphocytes # (1.0-4.8) k/uL Monocytes # (0-1.0) k/uL Eosinophils # (0-0.7) k/uL Basophils # (0-0.2) k/uL Macrocytosis PT (10.0-12.5) sec INR (<1.2) Sodium (137-145) mmol/L Potassium (3.5-5.1) mmol/L Chloride (98-107) mmol/L Carbon Dioxide (22-30) mmol/L Anion Gap mmol/L BUN (9-20) mg/dL Creatinine (0.66-1.25) mg/dL Est GFR (CKD-EPI)AfAm (>60 ml/min/1.73 sqM) Est GFR (CKD-EPI)NonAf (>60 ml/min/1.73 sqM) Glucose (74-99) mg/dL Calcium (8.4-10.2) mg/dL Magnesium 2.1 (1.6-2.3) mg/dL Total Bilirubin (0.2-1.3) mg/dL AST (17-59) U/L ALT (4-49) U/L Alkaline Phosphatase (38-126) U/L Troponin I <0.012 (0.000-0.034) ng/mL Total Protein (6.3-8.2) g/dL Albumin (3.5-5.0) g/dL Lipase (23-300) U/L Urine Color Colorless Urine Appearance Clear (Clear) Urine pH 7.0 (5.0-8.0) Ur Specific [place] 1.003 (1.001-1.035) Urine Protein Negative (Negative) Urine Glucose (UA) Negative (Negative) Urine Ketones Negative (Negative) Urine Blood Negative (Negative) Urine Nitrite Negative (Negative) Urine Bilirubin Negative (Negative) Urine Urobilinogen <2.0 (<2.0) mg/dL Ur Leukocyte Esterase Negative (Negative) Urine Opiates Screen Detected H (NotDetected) Ur Oxycodone Screen Not Detected (NotDetected) Urine Methadone Screen Not Detected (NotDetected) Ur Barbiturates Screen Not Detected (NotDetected) U Tricyclic Antidepress Not Detected (NotDetected) Ur Phencyclidine Scrn Not Detected (NotDetected) Ur Amphetamines Screen Not Detected (NotDetected) U Methamphetamines Scrn Not Detected (NotDetected) U Benzodiazepines Scrn Detected H (NotDetected) Urine Cocaine Screen Not Detected (NotDetected) U Marijuana (THC) Screen Not Detected (NotDetected) Serum Alcohol mg/dL - Radiology Data Radiology results: report reviewed, image reviewed Disposition Clinical Impression: Anxiety, Alcohol abuse, Drug addiction, Nicotine dependence Disposition: HOME SELF-CARE Instructions (If sedation given, give patient instructions): Generalized Anxiety Disorder (ED), Abuse of Alcohol (ED) Additional Instructions: Return to the emergency department with any new, worsening, or concerning symptoms. Try to reduce or discontinue your alcohol consumption. Follow up with your primary care provider in 1-2 days. Is patient prescribed a controlled substance at d/c from ED?: No Referrals: None,Stated [Primary Care Provider] - 1-2 days Time of Disposition: 12:47
[2024-04-20 10:11] LABS: INR 0.9 (<1.2); Prothrombin Time 10.1 sec (10.0-12.5)
[2024-04-20] MEDS: LORazepam 2 MG/ML INJ IV STA (10:11)
[2024-04-20] MEDS: SODIUM CHLORIDE 0.9% 1,000 ML IV STA (10:11)
[2024-04-20] MEDS: THIAMINE 100 MG/ML 2 ML VIAL IM STA (10:13)
--- NOTE | 2024-04-20 10:18 | XR ---
EXAMINATION TYPE: XR chest 2V DATE OF EXAM: 04/20/2024 10:03 AM COMPARISON: 02/24/2024 CLINICAL INDICATION: Male, 58 years old with history of VALERIE, TECHNIQUE: XR chest 2V view(s) obtained. FINDINGS: The heart size is normal. The pulmonary vasculature is normal. The lungs are clear. Hyperinflation and flattened diaphragms is present, can be compatible with COPD . IMPRESSION: 1. No acute pulmonary process. 2. Clinical consideration for COPD [facility], , 04/20/2024 10:15 AM
[2024-04-20] MEDS: IPRATROPIUM-ALBUTEROL 3 ML NEB INHALATION STA (10:22)
[2024-04-20 10:24] LABS: ALT 27 U/L (4-49); AST 56 U/L (17-59); African American GFR (CKD) >90 (>60 ml/min/1.73 sqM); Albumin 4.3 g/dL (3.5-5.0); Alcohol <10 mg/dL; Alkaline Phosphatase 78 U/L (38-126); Anion Gap 8 mmol/L; Blood Urea Nitrogen 9 mg/dL (9-20); Calcium 9.8 mg/dL (8.4-10.2); Carbon Dioxide 29 mmol/L (22-30); Chloride 101 mmol/L (98-107); Glucose 115 mg/dL (74-99); Lipase 104 U/L (23-300); Non-African American GFR(CKD) >90 (>60 ml/min/1.73 sqM); Potassium 4.1 mmol/L (3.5-5.1); Sodium 138 mmol/L (137-145); Total Bilirubin 0.5 mg/dL (0.2-1.3); Total Protein 6.8 g/dL (6.3-8.2)
[2024-04-20 11:08] LABS: Appearance,Urine Clear (Clear); Bilirubin,Urine Negative (Negative); Blood,Urine Negative (Negative); Color,Urine Colorless; Glucose,Urine (UA) Negative (Negative); Ketones,Urine Negative (Negative); Leukocyte Esterase,Urine Negative (Negative); Nitrite,Urine Negative (Negative); Protein,Urine Negative (Negative); Specific Gravity,Urine 1.003 (1.001-1.035); Urobilinogen,Urine <2.0 mg/dL (<2.0)
[2024-04-20 11:18] LABS: Amphetamine Screen,Urine Not Detected (NotDetected); Cocaine Screen,Urine Not Detected (NotDetected); Opiate Screen,Urine Detected (NotDetected); Phencyclidine Screen,Urine Not Detected (NotDetected); Urn Cannabinoid Scrn Not Detected (NotDetected)
[2024-04-20 11:19] LABS: Barbiturate Screen,Urine Not Detected (NotDetected); Benzodiazepines Screen,Urine Detected (NotDetected); Methadone Screen, Urine Not Detected (NotDetected); Oxycodone Screen, Urine Not Detected (NotDetected); Tricyclic Antidepressant,Urine Not Detected (NotDetected)
[2024-04-20 11:58] VITALS: PULSE 77
[2024-04-20] MEDS: ONDANSETRON 4 MG/2 ML VIAL IVP STA (11:58)
[2024-04-20] MEDS: KETOROLAC 15 MG/ML 1 ML VIAL IVP STA (12:01)
[2024-04-20] MEDS: MORPHINE SULFATE 4 MG/ML SYRINGE IVP STA (12:02)
[2024-04-20 12:53] VITALS: BP 103/73; RESP 18
[2024-04-20] MEDS: LORazepam 1 MG TAB PO STA (12:53)
[2024-04-20] MEDS ORDERED: THIAMINE 500 MG in SODIUM CHLORIDE 0.9% 50 ML IVPB SCH (16:00)
[2024-04-20] MEDS ORDERED: THIAMINE 250 MG in SODIUM CHLORIDE 0.9% 50 ML IVPB SCH (16:00)
[2024-04-21] MEDS ORDERED: MULTIVITAMINS, THERA 1 EACH TAB PO SCH (09:00)
[2024-04-21] MEDS ORDERED: THIAMINE 100 MG TAB PO SCH (09:00)
[2024-04-21] MEDS ORDERED: FOLIC ACID 1 MG TAB PO SCH (09:00)
== END 2024-04-20 12:54 | disposition home or self-care (01) ==
LOC: EC 09:32
DX: F10.129 Alcohol abuse with intoxication, unspecified (principal); F41.9 Anxiety disorder, unspecified; F17.200 Nicotine dependence, unspecified, uncomplicated; Y90.0 Blood alcohol level of less than 20 mg/100 ml
CPT/HCPCS: 36415; 93005; 80053; 83690; 83735; 84484; 85025; 85610; 81003; 80306; 80320; 71046; 99285; 96372; 96374; 96375 ×2; 96361; 99406; J2060; J2270; J3411; J2405; J1885

== ENCOUNTER 2024-06-12 11:33 | Emergency (ER) | payer MEDICARE, OTHER ==
--- NOTE | 2024-06-12 12:15 | ED ---
General Adult HPI - General Chief complaint: Shortness of Breath Stated complaint: COPD/Nausea/Stopped taking pain meds Time Seen by Provider: 06/12/24 11:48 Source: patient, RN notes reviewed Mode of arrival: wheelchair Limitations: no limitations - History of Present Illness Initial comments: This is a 58-year-old male with a history of COPD, alcohol abuse, and chronic pain who presents to the emergency department with multiple complaints. He states that he is been experiencing worsening shortness of breath, productive cough, nausea and vomiting over the past week. Additionally, states that he has been increasing amount of alcohol he has been drinking due to discontinuing use of pain medication as he reports that they have not been working for him. He endorses dyspnea on exertion where he will experience his heart "pounding" in his chest however denies chest pain. Denies history of DVT or PE, history of prolonged travel, recent surgeries, peripheral edema or leg swelling. - Related Data Previous Rx's Medication Instructions Recorded LORazepam [Ativan] 1 mg PO TID PRN #8 tab 06/24/16 Doxycycline Hyclate 100 mg PO BID 7 Days #14 tab 08/26/22 Pseudoephedrine 12Hr [Sudafed 12 120 mg PO Q12HR PRN #10 tab 08/26/22 Hour] Albuterol Inhaler [Ventolin Hfa 1 puff INHALATION QID #8 gm 11/06/22 Inhaler] Azithromycin [Zithromax] 250 mg PO DAILY 4 Days #4 tab 11/06/22 Lidocaine 5% Patch [Lidoderm 5% 14 patch TOPICAL DAILY PRN #14 11/06/22 Patch] patch predniSONE [Deltasone] 40 mg PO DAILY 5 Days #10 tab 11/06/22 Albuterol Inhaler [Ventolin Hfa 1 - 2 puff INHALATION Q6HR PRN #2 06/25/23 Inhaler] each Azithromycin [Zithromax Tri-Domenic (3 500 mg PO DAILY 3 Days #3 tab 06/25/23 tabs)] predniSONE [Deltasone] 40 mg PO DAILY #8 tab 06/25/23 Pantoprazole [Protonix] 40 mg PO DAILY #30 tab 08/22/23 Clindamycin [Cleocin] 450 mg PO Q6H 7 Days #63 capsule 08/25/23 chlordiazePOXIDE HCl [Librium] 25 mg PO TID 4 Days #15 capsule 02/24/24 Azithromycin [Zithromax] 500 mg PO DAILY #5 tab 06/12/24 predniSONE 50 mg PO DAILY #5 tab 06/12/24 Allergies Allergy/AdvReac Type Severity Reaction Status Date / Time No Known Allergies Allergy Verified 06/12/24 11:41 Review of Systems ROS Statement: Those systems with pertinent positive or pertinent negative responses have been documented in the HPI. ROS Other: All systems not noted in ROS Statement are negative. Past Medical History Past Medical History: COPD Additional Past Medical History / Comment(s): back pain History of Any Multi-Drug Resistant Organisms: None Reported Past Surgical History: No Surgical Hx Reported Additional Past Surgical History / Comment(s): METAL PLATE IN RIGHT EYE SOCKET Past Psychological History: No Psychological Hx Reported Smoking Status: Current every day smoker Past Alcohol Use History: Abuse, Daily, Heavy Past Drug Use History: Prescription Drug Abuse General Exam Limitations: no limitations General appearance: alert, in no apparent distress ENT exam: Present: normal exam, mucous membranes moist Neck exam: Present: normal inspection. Absent: tenderness, meningismus, lymphadenopathy Respiratory exam: Present: wheezes, decreased breath sounds. Absent: normal lung sounds bilaterally, respiratory distress, rales, rhonchi, stridor Cardiovascular Exam: Present: regular rate, normal rhythm, normal heart sounds. Absent: systolic murmur, diastolic murmur, rubs, gallop, clicks GI/Abdominal exam: Present: soft, normal bowel sounds. Absent: distended, tenderness, guarding, rebound, rigid Extremities exam: Present: normal inspection, full ROM, normal capillary refill. Absent: tenderness, pedal edema, joint swelling, calf tenderness Back exam: Present: normal inspection Course Vital Signs 06/12/24 06/12/24 11:41 14:49 Temperature 98.3 F 98.9 F Pulse Rate 105 H 91 Respiratory 20 18 Rate Blood Pressure 144/91 153/72 O2 Sat by Pulse 98 97 Oximetry Medical Decision Making - Medical Decision Making Was pt. sent in by a medical professional or institution (, PA, LIBRARY CLERICAL ASSISTANT, urgent care, hospital, or shelter...) When possible be specific @ -No Did you speak to anyone other than the patient for history (EMS, parent, family, police, friend...)? What history was obtained from this source @ -No Did you review nursing and triage notes (agree or disagree)? Why? @ -I reviewed and agree with nursing and triage notes Were old charts reviewed (outside hosp., previous admission, EMS record, old EKG, old radiological studies, urgent care reports/EKG's, shelter records)? Report findings @ -No old charts were reviewed Differential Diagnosis (chest pain, altered mental status, abdominal pain women, abdominal pain men, vaginal bleeding, weakness, fever, dyspnea, syncope, headache, dizziness, GI bleed, back pain, seizure, CVA, palpatations, mental health, musculoskeletal)? @ -Differential Dyspnea: Coronary syndrome, arrhythmia, tamponade, asthma, COPD, pulmonary embolism, pneumonia, pneumothorax, pulmonary effusion, anaphylaxis, diabetic ketoacidosis, flailed chest, pulmonary contusion, diaphragmatic rupture, anemia, neuromuscular, this is not meant to be an all-inclusive list. EKG interpreted by me (3pts min.). @ -Completed at 1242 sinus rhythm with a ventricular rate of 82, DE interval 155, QRS 96, QTc 402. No acute signs of ischemia. X-rays interpreted by me (1pt min.). @ -Chest x-ray reveals no acute process with no significant changes compared to previous CT interpreted by me (1pt min.). @ -None done U/S interpreted by me (1pt. min.). @ -None done What testing was considered but not performed or refused? (CT, X-rays, U/S, labs)? Why? @ -None What meds were considered but not given or refused? Why? @ -None Did you discuss the management of the patient with other professionals (professionals i.e. , PA, LIBRARY CLERICAL ASSISTANT, lab, RT, psych nurse, social work instructor, head stock transfer clerk, teacher, principal gifts officer, comp field case manager)? Give summary @ -No Was smoking cessation discussed for >3mins.? @ -No Was critical care preformed (if so, how long)? @ -No Were there social determinants of health that impacted care today? How? (Home lessness, low income, unemployed, alcoholism, drug addiction, transportation, low edu. Level, literacy, decrease access to med. care, retirement, rehab)? @ -No Was there de-escalation of care discussed even if they declined (Discuss DNR or withdrawal of care, Hospice)? DNR status @ -No What co-morbidities impacted this encounter? (DM, HTN, Smoking, COPD, CAD, Cancer, CVA, ARF, Chemo, Hep., AIDS, mental health diagnosis, sleep apnea, morbid obesity)? @ -None Was patient admitted / discharged? Hospital course, mention meds given and route, prescriptions, significant lab abnormalities, going to OR and other pertinent info. @ -Discharge. 58-year-old male presenting with shortness of breath, anxiety, productive cough and potential withdrawal. Patient noted to be very anxious on exam. There is decreased breath sounds and wheezes bilaterally throughout both lung anderson. Patient is provided with dose of Solu-Medrol and evaluated via chest x-ray and laboratory study. Labs including CBC, CMP, coagulation profile and troponin unremarkable. Serum alcohol is less than 10. Chest x-rays unremarkable. With concern for patient's worsening productive cough and shortness of breath and history of COPD he will be discharged with antibiotics for chronic bronchitis in addition to steroids. Discussed with Dr. Simon Undiagnosed new problem with uncertain prognosis? @ -No Drug Therapy requiring intensive monitoring for toxicity (Heparin, Nitro, Insulin, Cardizem)? @ -No Were any procedures done? @ -No Diagnosis/symptom? @ -Chronic bronchitis, alcohol abuse Acute, or Chronic, or Acute on Chronic? @ -Acute Uncomplicated (without systemic symptoms) or Complicated (systemic symptoms)? @ -Uncomplicated Side effects of treatment? @ -No Exacerbation, Progression, or Severe Exacerbation? @ -No Poses a threat to life or bodily function? How? (Chest pain, [place], [place], pneumonia, PE, COPD, DKA, ARF, appy, cholecystitis, CVA, Diverticulitis, Homicidal, Suicidal, threat to staff... and all critical care pts) @ -No - Lab Data Result diagrams: 06/12/24 13:01 06/12/24 13:01 Lab Results 06/12/24 06/12/24 06/12/24 Range/Units 13:01 13: 13:01 WBC 10.0 (3.8-10.6) k/uL RBC 4.44 (4.30-5.90) m/uL Hgb 15.3 (13.0-17.5) gm/dL Hct 45.0 (39.0-53.0) % MCV 101.2 H (80.0-100.0) fL MCH 34.4 (25.0-35.0) pg MCHC 34.0 (31.0-37.0) g/dL RDW 13.4 (11.5-15.5) % Plt Count 262 (150-450) k/uL MPV 7.7 Neutrophils % 81 % Lymphocytes % 11 % Monocytes % 6 % Eosinophils % 1 % Basophils % 0 % Neutrophils # 8.0 H (1.3-7.7) k/uL Lymphocytes # 1.1 (1.0-4.8) k/uL Monocytes # 0.6 (0-1.0) k/uL Eosinophils # 0.1 (0-0.7) k/uL Basophils # 0.0 (0-0.2) k/uL Macrocytosis Slight PT 9.9 L (10.0-12.5) sec INR 0.9 (<1.2) APTT 22.2 (22.0-30.0) sec Sodium 135 L (137-145) mmol/L Potassium 4.6 (3.5-5.1) mmol/L Chloride 97 L (98-107) mmol/L Carbon Dioxide 23 (22-30) mmol/L Anion Gap 15 mmol/L BUN 6 L (9-20) mg/dL Creatinine 0.60 L (0.66-1.25) mg/dL Est GFR (CKD-EPI)AfAm >90 (>60 ml/min/1.73 sqM) Est GFR (CKD-EPI)NonAf >90 (>60 ml/min/1.73 sqM) Glucose 82 (74-99) mg/dL Calcium 10.0 (8.4-10.2) mg/dL Total Bilirubin 1.1 (0.2-1.3) mg/dL AST 86 H (17-59) U/L ALT 48 (4-49) U/L Alkaline Phosphatase 97 (38-126) U/L Troponin I (0.000-0.034) ng/mL Total Protein 8.1 (6.3-8.2) g/dL Albumin 5.3 H (3.5-5.0) g/dL Lipase 59 (23-300) U/L Serum Alcohol <10 mg/dL 06/12/24 Range/Units 13:01 WBC (3.8-10.6) k/uL RBC (4.30-5.90) m/uL Hgb (13.0-17.5) gm/dL Hct (39.0-53.0) % MCV (80.0-100.0) fL MCH (25.0-35.0) pg MCHC (31.0-37.0) g/dL RDW (11.5-15.5) % Plt Count (150-450) k/uL MPV Neutrophils % % Lymphocytes % % Monocytes % % Eosinophils % % Basophils % % Neutrophils # (1.3-7.7) k/uL Lymphocytes # (1.0-4.8) k/uL Monocytes # (0-1.0) k/uL Eosinophils # (0-0.7) k/uL Basophils # (0-0.2) k/uL Macrocytosis PT (10.0-12.5) sec INR (<1.2) APTT (22.0-30.0) sec Sodium (137-145) mmol/L Potassium (3.5-5.1) mmol/L Chloride (98-107) mmol/L Carbon Dioxide (22-30) mmol/L Anion Gap mmol/L BUN (9-20) mg/dL Creatinine (0.66-1.25) mg/dL Est GFR (CKD-EPI)AfAm (>60 ml/min/1.73 sqM) Est GFR (CKD-EPI)NonAf (>60 ml/min/1.73 sqM) Glucose (74-99) mg/dL Calcium (8.4-10.2) mg/dL Total Bilirubin (0.2-1.3) mg/dL AST (17-59) U/L ALT (4-49) U/L Alkaline Phosphatase (38-126) U/L Troponin I <0.012 (0.000-0.034) ng/mL Total Protein (6.3-8.2) g/dL Albumin (3.5-5.0) g/dL Lipase (23-300) U/L Serum Alcohol mg/dL Disposition Clinical Impression: Chronic bronchitis Disposition: HOME SELF-CARE Condition: Stable Instructions (If sedation given, give patient instructions): Chronic Bronchitis (ED) Additional Instructions: Please return to the Emergency Department if symptoms worsen or any other concerns. Prescriptions: predniSONE 50 mg PO DAILY #5 tab Azithromycin [Zithromax] 500 mg PO DAILY #5 tab Is patient prescribed a controlled substance at d/c from ED?: No Referrals: [facility] [NON-STAFF] - 1-2 days [facility] [NON-STAFF] - 1-2 days Forms: Area PCPs Time of Disposition: 14:20
--- NOTE | 2024-06-12 12:35 | XR ---
EXAMINATION TYPE: XR chest 2V DATE OF EXAM: 06/12/2024 12:31 PM COMPARISON: Chest x-ray April 20, 2024 CLINICAL INDICATION: Male, 58 years old with history of wheeze, cough, SOB, TECHNIQUE: Frontal and lateral views of the chest are obtained. FINDINGS: There is no suspicious focal air space opacity, pleural effusion, or pneumothorax seen. T he cardiac silhouette size is stable and within normal limits. The osseous structures are intact. IMPRESSION: No acute pulmonary process. No significant change from prior. [facility], , 06/12/2024 12:33 PM
[2024-06-12] MEDS: methylPREDNISolone SOD SUCCI 125 MG/2 ML VIAL IV STA (13:03)
[2024-06-12] MEDS: LORazepam 2 MG/ML INJ IV STA (13:04)
[2024-06-12] MEDS: IPRATROPIUM-ALBUTEROL 3 ML NEB INHALATION STA (13:08)
[2024-06-12 13:30] LABS: Basophils % (A) 0 %; Eosinophils # (A) 0.1 k/uL (0-0.7); Eosinophils % (A) 1 %; HGB 15.3 gm/dL (13.0-17.5); Lymphocytes # (A) 1.1 k/uL (1.0-4.8); Lymphocytes % (A) 11 %; MCH 34.4 pg (25.0-35.0); MCV 101.2 fL (80.0-100.0); Macrocytosis Slight; Mean Platelet Volume 7.7; Monocytes # (A) 0.6 k/uL (0-1.0); Monocytes % (A) 6 %; Neutrophils % (A) 81 %; Platelet Count 262 k/uL (150-450); RBC 4.44 m/uL (4.30-5.90); RDW 13.4 % (11.5-15.5)
[2024-06-12 13:49] LABS: ALT 48 U/L (4-49); AST 86 U/L (17-59); African American GFR (CKD) >90 (>60 ml/min/1.73 sqM); Albumin 5.3 g/dL (3.5-5.0); Alcohol <10 mg/dL; Alkaline Phosphatase 97 U/L (38-126); Anion Gap 15 mmol/L; Blood Urea Nitrogen 6 mg/dL (9-20); Carbon Dioxide 23 mmol/L (22-30); Chloride 97 mmol/L (98-107); Glucose 82 mg/dL (74-99); Lipase 59 U/L (23-300); Non-African American GFR(CKD) >90 (>60 ml/min/1.73 sqM); Potassium 4.6 mmol/L (3.5-5.1); Sodium 135 mmol/L (137-145); Total Bilirubin 1.1 mg/dL (0.2-1.3); Total Protein 8.1 g/dL (6.3-8.2)
[2024-06-12 13:57] LABS: INR 0.9 (<1.2); Partial Thromboplastin Time 22.2 sec (22.0-30.0); Prothrombin Time 9.9 sec (10.0-12.5)
[2024-06-12] MEDS: KETOROLAC 15 MG/ML 1 ML VIAL IVP STA (14:27)
[2024-06-12] MEDS: MORPHINE SULFATE 4 MG/ML SYRINGE IVP STA (14:27)
[2024-06-12 14:49] VITALS: BP 153/72; PULSE 91; RESP 18; TEMP 98.9
== END 2024-06-12 15:05 | disposition home or self-care (01) ==
LOC: EC 11:33
DX: J42 Unspecified chronic bronchitis (principal); F17.200 Nicotine dependence, unspecified, uncomplicated
CPT/HCPCS: 36415; 93005; 80053; 83690; 84484; 85025; 85610; 85730; 80320; 71046; 99285; 96374; 96375; J2060; J2270; J1885; J2919